=== PATIENT | female | born 1960 | race American Indian/Alaskan Native ===

== ENCOUNTER 2018-12-14 06:42 | Day surgery (SDC) | payer OTHER, SELFPAY ==
--- NOTE | 2018-12-14 | PATH_ITS ---
[facility] Accession Number: [id number] . 01 Material submitted: . colon - POLYP AT 75 CM . 01 Clinical history: . SCREENING COLONOSCOPY . 02 Diagnosis: Colon at 75 cm, Polyp: Tubular adenoma. MRV 12/17/2018 1014 Local . 02 Electronically signed: . Popeye Echols MD, PhD, Pathologist NPI- [id number] . 01 Gross description: . POLYP AT 75 CM: Received in formalin is 1 fragment(s) of neves, soft tissue measuring 0.3 x 0.3 x 0.2 cm which is entirely submitted and submitted entirely in 1 cassette(s) /[facility] [place] 12/14/2018 1912 Local . 02 Pathologist provided ICD-10: D12.6 . 02 CPT . 555508 Performed at: 01 [facility] [address] [id number] MD Richy Renteria MD Phone: [phone] Performed at: 02 [facility] [address] [place], [place] [id number] MD Brittanie Richard MD Phone: [phone]
[2018-12-14 07:11] VITALS: BP 134/78; PULSE 66; RESP 16; TEMP 36.3; O2SAT 99; BMI 30.9
--- NOTE | 2018-12-14 07:18 | PM.HP.1 ---
History of Present Illness History of Present Illness Date Patient Seen: 12/14/18 Time Patient Seen: 07:30 Chief complaint: [id number] SCREENING COLONOSCOPY Narrative: 58 yo woman here for follow-up surveillance colonoscopy. She has a family history of her sister being diagnosed with colon cancer at age 50. The patient had her 1st colonoscopy at age 51, was found to have polyps per the patient. She was told to have a repeat colonoscopy every 5 years. She is here for her 2nd colonoscopy. She denies any melena, hematochezia, unexplained weight loss, constipation, diarrhea, or abdominal pain. ROS: 10 system review with no remarkable findings other than as mentioned in HPI. PE: GENERAL: Well groomed and cooperative. Appears stated age. Answers questions promptly and appropriately. Vital signs noted. HENT: Normocephalic, atraumatic. Hearing intact. Oral mucosa is pink and moist. EYES: Conjunctiva pink, sclera white, no periorbital swelling. CARDIOVASCULAR: Regular rate. No pedal edema. RESPIRATORY: Normal respiratory rate, breathing comfortably on room air. GASTROINTESTINAL: Abdomen soft and non-distended GENITALURINARY: No flank tenderness. MUSCULOSKELETAL: Normal gait and coordination. Equal tone and mass bilaterally. SKIN: Warm, dry, soft, appropriate color for ethnicity. No other lesions, rashes, or wounds. NEURO: Alert and Oriented X 3. Good coordination. No ataxia, or sensory deficits, or cognitive issues. PSYCH: Appropriate affect and mood. Medical history: Mild intermittent asthma, essential hypertension, rheumatic mitral regurgitation Surgical history: Cholecystectomy in 2017, tonsillectomy Medications: Flovent HFA 220 mcg/aCT aerosol 1 puff inhalation twice a day Lisinopril 40 mg tablet 1 tablet orally once per day Hydrochlorothiazide 25 mg tablet 1 tablet in the morning orally once a day Allergies: Bee sting-swelling, Flonase-epistaxis Family history: Sister with colon cancer Patient History Medical History Asthma (Acute) Hypertension (Acute) Rheumatic mitral regurgitation (Acute) Social History household members: none Meds Home Medications and Allergies Allergies Allergy/AdvReac Type Severity Reaction Status Date / Time bee venom protein (honey bee) Allergy Intermediate swelling Verified 12/14/18 07:29 at the site fluticasone [From Flonase] AdvReac Mild bloody nose Verified 12/14/18 07:29 ENVIRONMENTAL ALLERGIES Allergy Unknown Uncoded 06/07/17 11:57 Assessment & Plan Assessment and plan (1) Personal history of colonic polyps: Problem details: Risk and benefit of colonoscopy and possible biopsy and polypectomy were discussed with the patient including risk of bleeding and perforation. The patient desires to proceed with her colonoscopy procedure. Current visit: Yes Status: Acute (2) Family history of malignant neoplasm of colon in first degree relative diagnosed when younger than 60 years of age: Problem details: As above Current visit: Yes Status: Acute Quality VTE Deep Vein Thrombosis/Pulmonary Embolism Present on Admission: No
[2018-12-14] MEDS: SODIUM CHLORIDE 0.9% 1,000 ML 200 ML IV (07:30)
[2018-12-14] MEDS: MIDAZOLAM 5 MG/5 ML VIAL IV (08:19)
[2018-12-14] MEDS: fentaNYL 250 MCG/5 ML INJ IV (08:20)
--- NOTE | 2018-12-14 08:20 | PM.OP.ENDO ---
Operative Date/Time/Diagnoses Date of procedure: 12/14/18 Time of procedure: 08:20 Pre-op diagnosis: Personal history of polyps, family history of colon cancer in the patient's sister Post-op diagnosis: other (Severe diverticulosis throughout the colon, 1 small polyp) Procedure & Clinicians Study performed: Colonoscopy, polypectomy with cold forceps Same procedure as scheduled: Yes Indications: Personal history of polyps, family history of colon cancer Surgeon: Rain Palomino Procedure Notes SCOAP/Timeout: Performed Procedure in detail: The patient was brought to the room and placed in left lateral decubitus position with all bony prominences padded. A time-out was performed and then the patient was given procedural sedation starting with 4 mg of Versed and 100 mg of fentanyl. Vitals were monitored throughout the procedure and remained stable. Once adequately sedated the procedure was begun. A rectal exam was performed revealing no abnormalities. The colonoscope was then introduced to the rectum and advanced to the cecum in the usual fashion. The cecum was identified by the appendiceal orifice, the mucosal try fold, and the ileocecal valve. The scope was then retracted while rotating side to side and examining each mucosal fold. Severe diffuse diverticulosis seen throughout the colon. In the sigmoid colon there were very large diverticula with some false passages. There was a small sessile 3 mm polyp at 75 cm which was removed with cold forceps. At the conclusion of the procedure retroflexion was performed and small grade 1-2 internal hemorrhoids without stigmata of bleeding were seen. The scope was then withdrawn from the rectum the procedure was concluded. The patient tolerated the procedure well was transferred to the PACU in stable condition. Scope withdrawal time: 9 minutes Sedation minutes: 19 Findings: diverticulosis and polyp Specimen(s): other (3 mm polyp from 75 cm from the anal verge) Complications: none Impression: Severe diverticulosis, 1 small polyp which appeared benign Post-procedure Recommendations: Colonscopy in 5 years (Due to family history) Follow up: as needed Disposition: PACU
[2018-12-14 08:21] VITALS: BP 125/71; PULSE 75; RESP 18; TEMP 36.6; O2SAT 98
[2018-12-14 08:26] VITALS: BP 114/76; PULSE 74; RESP 15; O2SAT 98
[2018-12-14 08:31] VITALS: BP 112/76; PULSE 81; RESP 12; TEMP 36.5; O2SAT 98
[2018-12-14 08:38] VITALS: BP 120/71; PULSE 63; RESP 16; TEMP 37.1; O2SAT 97
== END 2018-12-14 08:49 | disposition home or self-care (01) ==
PROVIDERS: PCP Physician Assistant; Visit Provider Surgery
PROC: 0DJD8ZZ Inspection of Lower Intestinal Tract, Via Natural or Artificial Opening Endoscopic (ICD-10-PCS; CPT 45378; principal; 2018-12-14 07:45)
DX: Z86.010 Personal history of colon polyps (principal); Z80.0 Family history of malignant neoplasm of digestive organs; K57.30 Diverticulosis of large intestine without perforation or abscess without bleeding; K64.0 First degree hemorrhoids; D12.6 Benign neoplasm of colon, unspecified
CPT/HCPCS: 45380; 99152; J2250; J3010

== ENCOUNTER → 2018-12-24 14:23 | Outpatient (CLI) | payer OTHER, SELFPAY ==
--- NOTE | 2018-12-24 | DI.RAD.S_ITS ---
PROCEDURE: XR FOOT RT MIN 3V INDICATIONS: Contusion of right great toe without damage to nail, initial TECHNIQUE: 3 views of the foot were acquired. COMPARISON: [facility], , FOOT 3V RIGHT, 07/17/2013, 11:58. FINDINGS: Bones: No fractures or dislocations. No suspicious bony lesions. Plantar and posterior calcaneal spur. Diffuse interphalangeal first MTP joint degeneration. Midfoot spurring. Hallux valgus appearance, however weight bearing views would be more specific. Soft tissues: No tibiotalar joint effusion. Achilles tendon appears normal. IMPRESSION: No fracture. Chronic degenerative changes as above. Plantar and posterior calcaneal spurs. Dictated by: Meng Myles M.D. on 12/24/2018 at 15:31 Approved by: Meng Myles M.D. on 12/24/2018 at 15:34
== END ==
PROVIDERS: PCP Physician Assistant; Visit Provider Family Medicine
DX: S90.111A Contusion of right great toe without damage to nail, initial encounter (principal); M77.31 Calcaneal spur, right foot; M19.071 Primary osteoarthritis, right ankle and foot
CPT/HCPCS: 73630

== ENCOUNTER 2019-10-30 12:44 | Inpatient (IN) | payer OTHER, SELFPAY ==
[2019-10-30] VITALS (13 sets, daily range): BP systolic 101–137; BP diastolic 58–82; PULSE 95–181; RESP 18–25; TEMP 36.3; O2SAT 95–99; BMI 33.5
--- NOTE | 2019-10-30 13:12 | DI.RAD.S_ITS ---
PROCEDURE: XR CHEST 1V INDICATIONS: Chest pain TECHNIQUE: One view of the chest was acquired. COMPARISON: None. FINDINGS: Surgical changes and devices: None. Lungs and pleura: Increased interstitial markings in both lungs. No consolidation or pleural effusion. Mediastinum: Enlarged cardiac silhouette. Bones and chest wall: No suspicious bony lesions. Overlying soft tissues appear unremarkable. IMPRESSION: Cardiomegaly with increased interstitial markings bilaterally. Findings most likely represent heart failure with mild cardiogenic pulmonary edema. Correlate with BNP and echocardiographic findings. Dictated by: Eduin Kerr M.D. on 10/30/2019 at 13:33 Approved by: Eduin Kerr M.D. on 10/30/2019 at 13:34
[2019-10-30] MEDS: dilTIAZem 5 MG/ML SDV 10 MG IV ×2 (13:22→13:37)
[2019-10-30 13:23] LABS: Add Manual Diff / Slide Review NO; Basophils Absolute Auto 100 /uL (0-100); Basophils Percent Auto 1.3 % (0-2); Eosinophils Absolute Auto 100 /uL (0-450); Eosinophils Percent Auto 1.1 % (2-4); Hematocrit 40.3 % (36-46); Hemoglobin 13.7 g/dL (12.0-16.0); Lymphocytes Absolute Auto 1500 /uL (1100-4500); Lymphocytes Percent Auto 16.6 % (25-40); Mean Corpuscular HGB Conc 34.1 % (30-36); Mean Corpuscular Hemoglobin 34.8 PG (26-34); Mean Corpuscular Volume 102.1 fL (80-100); Monocytes Absolute Auto 500 /uL (0-900); Monocytes Percent Auto 5.4 % (3-14); Neutrophils Absolute Auto 6900 /uL (1500-7000); Neutrophils Percent Auto 75.6 % (50-75); Platelet Count 224 X10^3/uL (150-400); Red Blood Cell Count 3.94 X10^6/uL (4.0-5.2); Red Cell Distribution Width 13.7 % (11.6-14.8); White Blood Cell Count 9.1 X10^3/uL (4.5-11.0)
--- NOTE | 2019-10-30 13:24 | ED_ITS ---
HPI - Arrhythmia/Palpitations General Chief Complaint: Arrhythmia/Palpitations Stated Complaint: low b/p/hr high/constipation x2 days Time Seen by Provider: 10/30/19 13:16 Source: patient Mode of arrival: Ambulatory Limitations: no limitations History of Present Illness HPI narrative: Patient is a 59-year-old female who presents with not feeling well. She is found to be in AFib with RVR with a rate in the 180s. She says she has been on amoxicillin for the last 1 week she was at the dentist 2 days ago for procedure. She started feeling shortness of breath fatigue. She says she actually has not had a bowel movement the last 2 days she feels like her abdomen is distended. She is having positive orthopnea but no lower extremity edema. She says she is having difficulty with urination as well and is only p ain small amounts. She denies any nausea or vomiting. She thinks she may had some chest discomfort off and on for the last 1 week she would rub her chest to see if it would go away. MD complaint: rapid heart beat Onset (ago): day(s) Related Data Home Medications Medication Instructions Recorded Confirmed Flovent HFA 1 inh INHALATION PRN PRN 12/14/18 10/30/19 albuterol sulfate [Ventolin HFA] 2 puff INHALATION Q6H PRN 12/14/18 10/30/19 calcium carbonate [Calcium 600] 600 mg PO BID 12/14/18 10/30/19 cholecalciferol (vitamin D3) 1,000 unit PO DAILY 12/14/18 10/30/19 [Vitamin D3] glucosamine-chondroitin [Osteo 1 tab PO DAILY 12/14/18 10/30/19 Bi-Flex] hydrochlorothiazide 25 mg PO DAILY 12/14/18 10/30/19 lisinopril 40 mg PO DAILY 12/14/18 10/30/19 multivitamin 4 tab PO DAILY 12/14/18 10/30/19 inulin [Fiber Gummies] 4 g PO DAILY 10/30/19 10/30/19 Allergies Allergy/AdvReac Type Severity Reaction Status Date / Time bee venom protein (honey bee) Allergy Intermediate swelling Verified 12/14/18 07:29 at the site fluticasone [From Flonase] AdvReac Mild bloody nose Verified 10/18/19 07:29 ENVIRONMENTAL ALLERGIES Allergy Unknown Uncoded 06/07/17 11:57 Review of Systems Review of Systems ROS Unobtainable: All systems reviewed & are unremarkable except as noted in HPI and below Constitutional Constitutional: Denies body ache(s), Reports fatigue, Denies fever(s) and Denies frequent falls Eyes Eyes: Denies change in vision, Denies eye discharge, Denies irritation and Denies loss of vision ENT Ears, Nose, Mouth, and Throat: Denies change in voice, Denies neck pain and Denies sore throat Cardiovascular Cardiovascular: Reports as per HPI, Reports lightheadedness, Reports dyspnea on exertion and Reports orthopnea Respiratory Respiratory: Reports dyspnea on exertion Musculoskeletal Musculoskeletal: Denies back pain and Denies neck pain Integumentary/Breasts Skin/Breast: Denies pruritus, Denies erythema, Denies rash and Denies wounds Neurologic Neurologic: Denies frequent falls and Denies loss of vision Endocrine Endocrine: Reports fatigue Patient History Medical History Asthma (Acute) Hypertension (Acute) Rheumatic mitral regurgitation (Acute) Surgical History History of cholecystectomy (Acute) History of tonsillectomy (Acute) Social History household members: none Smoking Status: Former smoker alcohol intake: current Exam Initial Vital Signs Initial Vital Signs: Vital Signs Pulse Rate 112 H 10/30/19 13:05 Respiratory Rate 24 10/30/19 13:05 Blood Pressure 106/58 L 10/30/19 13:05 Pulse Oximetry 99 10/30/19 13:05 GENERAL: Well-appearing, well-nourished and in no acute distress. HEENT: Head atraumatic,EOMI, pupils reactive, face symmetric, moist mucous membranes CARDIOVASCULAR: tachycardic irregularly irregular no murmur RESPIRATORY: Breath sounds equal bilaterally, no wheezes rales or rhonchi. ABDOMEN: Soft, nontender. Slightly distended. Normoactive bowel sounds all 4 quadrants. No guarding or rebound. EXTREMITIES: Normal range of motion, no clubbing or edema. Neurovascularly intact NEUROLOGICAL: Alert and oriented x4.Normal gait and speech. Cranial nerves II through XII grossly intact. SKIN: Warm, dry, no laceration, no petechiae, no rashes or lesions. Course Orders Ordered: ED Orders 10/30/19 13:12 XR chest 1V Stat EKG-12 Lead Stat 10/30/19 13:15 Complete Blood Count AUTO DIFF Stat Comprehensive Metabolic Panel Stat Lipase Stat NT-proBNP (BNP-Adult 18+) Stat Partial Thromboplastin Time Stat Prothrombin Time INR Stat Troponin & CK Cardiac Panel Stat Acetaminophen (Tylenol) 650 mg PO Q6HR PRN PRN Reason: Fever/Mild Pain (1-3) Apixaban (Eliquis) 5 mg PO BID DAX Carvedilol (Coreg) 3.125 mg PO BID DAX DILTIAZEM (Diltiazem 125 Mg/125 Ml-D5w) 125 mg in 125 mls @ 5 mls/hr IV TITRATE DAX; Protocol Last Titration: 10/30/19 15:12 Dose: 5 mg/hr, 5 mls/hr Documented by: Admin: 10/30/19 14:24 Dose: 5 mg/hr, 5 mls/hr Documented by: ASHOK Lorazepam (Ativan) 0 mg PO CIWAPRN PRN; Protocol PRN Reason: Alcohol Withdrawal Multivitamins (Tab-A-Vanessa) 1 tab PO DAILY [facility] Ondansetron HCl (Zofran) 4 mg IV Q8HR PRN PRN Reason: Nausea And Vomiting Polyethylene Glycol (Miralax) 17 gm PO DAILY [facility] Sennosides (Senna) 17.2 mg PO BEDTIME DAX Discontinued Medications Apixaban (Eliquis) 5 mg PO NOW ONE Stop: 10/30/19 16:03 Diltiazem HCl (Cardizem) 10 mg IV NOW ONE Stop: 10/30/19 13:17 Last Admin: 10/30/19 13:22 Dose: 10 mg Documented by: KYLE Diltiazem HCl (Cardizem) 10 mg IV NOW ONE Stop: 10/30/19 13:34 Last Admin: 10/30/19 13:37 Dose: 10 mg Documented by: KYLE Furosemide (Lasix) 20 mg IV NOW ONE Stop: 10/30/19 13:47 Last Admin: 10/30/19 14:31 Dose: 20 mg Documented by: ASHOK Metoprolol Succinate (Toprol Xl) 25 mg PO NOW ONE Stop: 10/30/19 13:59 Last Admin: 10/30/19 14:23 Dose: Not Given Documented by: ASHOK Polyethylene Glycol (Miralax) 17 gm PO NOW ONE Stop: 10/30/19 15:52 Vital Signs Vital signs: Vital Signs - 8 hr 10/30/19 13:05 10/30/19 13:10 10/30/19 13:22 Pulse Rate 112 H 167 H 172 H Respiratory Rate 24 25 H Blood Pressure 106/58 L 110/82 Pulse Oximetry 99 98 10/30/19 13:23 10/30/19 13:29 10/30/19 13:30 Pulse Rate 181 H 139 H 151 H Respiratory Rate 23 24 24 Blood Pressure 110/82 111/72 Pulse Oximetry 96 95 96 10/30/19 13:31 10/30/19 13:37 Pulse Rate 146 H 153 H Respiratory Rate 25 H Blood Pressure 114/71 114/71 Pulse Oximetry 95 MDM - Arrhythmia/Palpitations Lab Data Attestation: I reviewed the patient's lab results. Result diagrams: 10/30/19 13:15 10/30/19 13:15 Labs: Lab Results 10/30/19 10/30/19 10/30/19 Range/Units 13:15 13:15 13:15 WBC 9.1 (4.5-11.0) X10^3/uL RBC 3.94 L (4.0-5.2) X10^6/uL Hgb 13.7 (12.0-16.0) g/dL Hct 40.3 (36-46) % MCV 102.1 H (80-100) fL MCH 34.8 H (26-34) PG MCHC 34.1 (30-36) % RDW 13.7 (11.6-14.8) % Plt Count 224 (150-400) X10^3/uL Neut % (Auto) 75.6 H (50-75) % Lymph % (Auto) 16.6 L (25-40) % [place] % (Auto) 5.4 (3-14) % Eos % (Auto) 1.1 L (2-4) % Baso % (Auto) 1.3 (0-2) % Neut # (Auto) 6900 (2254-9385) /uL Lymph # (Auto) 1500 (2193-3426) /uL [place] # (Auto) 500 (0-900) /uL Eos # (Auto) 100 (0-450) /uL Baso # (Auto) 100 (0-100) /uL PT 16.0 H (10.1-12.7) SECONDS INR 1.4 H (0.9-1.3) APTT 27 (26.4-36.2) SECONDS Sodium 129 L (137-145) mmol/L Potassium 3.9 (3.4-5.1) mmol/L Chloride 94 L (98-107) mmol/L Carbon Dioxide 24 (22-32) mmol/L BUN 32 H (7-17) mg/dL Creatinine 1.10 H (0.52-1.04) mg/dL Estimated GFR 50.8 L (>60) mL/min BUN/Creatinine Ratio 29.1 H (6-22) Glucose 99 (70-100) mg/dL Calcium 9.7 (8.4-10.2) mg/dL Total Bilirubin 1.0 (0.2-1.3) mg/dL AST 146 H (14-36) IU/L ALT 107 H (<35) IU/L Alkaline Phosphatase 70 (38-126) U/L Total Creatine Kinase 91 (30-135) U/L CK-MB (CK-2) TNP CK-MB (CK-2) Rel Index TNP Troponin I 0.031 (0.01-0.034) ng/mL NT-Pro-B Natriuret Pep (<125) pg/mL Total Protein 7.1 (6.3-8.2) g/dL Albumin 4.2 (3.5-5.0) g/dL Globulin 2.9 (1.7-4.1) g/dL Albumin/Globulin Ratio 1.4 (1.0-2.8) Lipase 276 (23-300) U/L 10/30/19 Range/Units 13:15 WBC (4.5-11.0) X10^3/uL RBC (4.0-5.2) X10^6/uL Hgb (12.0-16.0) g/dL Hct (36-46) % MCV (80-100) fL MCH (26-34) PG MCHC (30-36) % RDW (11.6-14.8) % Plt Count (150-400) X10^3/uL Neut % (Auto) (50-75) % Lymph % (Auto) (25-40) % [place] % (Auto) (3-14) % Eos % (Auto) (2-4) % Baso % (Auto) (0-2) % Neut # (Auto) (9140-9031) /uL Lymph # (Auto) (6969-8448) /uL [place] # (Auto) (0-900) /uL Eos # (Auto) (0-450) /uL Baso # (Auto) (0-100) /uL PT (10.1-12.7) SECONDS INR (0.9-1.3) APTT (26.4-36.2) SECONDS Sodium (137-145) mmol/L Potassium (3.4-5.1) mmol/L Chloride (98-107) mmol/L Carbon Dioxide (22-32) mmol/L BUN (7-17) mg/dL Creatinine (0.52-1.04) mg/dL Estimated GFR (>60) mL/min BUN/Creatinine Ratio (6-22) Glucose (70-100) mg/dL Calcium (8.4-10.2) mg/dL Total Bilirubin (0.2-1.3) mg/dL AST (14-36) IU/L ALT (<35) IU/L Alkaline Phosphatase (38-126) U/L Total Creatine Kinase (30-135) U/L CK-MB (CK-2) CK-MB (CK-2) Rel Index Troponin I (0.01-0.034) ng/mL NT-Pro-B Natriuret Pep 63006 H (<125) pg/mL Total Protein (6.3-8.2) g/dL Albumin (3.5-5.0) g/dL Globulin (1.7-4.1) g/dL Albumin/Globulin Ratio (1.0-2.8) Lipase (23-300) U/L Imaging Data Chest x-ray: Radiologist's Impresson: PROCEDURE: XR CHEST 1V INDICATIONS: Chest pain TECHNIQUE: One view of the chest was acquired. COMPARISON: None. FINDINGS: Surgical changes and devices: None. Lungs and pleura: Increased interstitial markings in both lungs. No consolidation or pleural effusion. Mediastinum: Enlarged cardiac silhouette. Bones and chest wall: No suspicious bony lesions. Overlying soft tissues appear unremarkable. IMPRESSION: Cardiomegaly with increased interstitial markings bilaterally. Findings most likely represent heart failure with mild cardiogenic pulmonary edema. Correlate with BNP and echocardiographic findings. Dictated by: Eduin Kerr M.D. on 10/30/2019 at 13:33 ECG Data Attestation: I personally reviewed and interpreted this ECG as follows: Prior ECG tracings: available for review Interpretation: Atrial fibrillation rate [address] changes previous EKG does show normal sinus rhythm in 2009 MDM Narrative Medical decision making narrative: The patient has had symptoms ongoing for at least 2 days possibly a week even she is not a candidate for cardioversion. She is having abdominal distension and orthopnea with an elevated BNP along with cardiomegaly and interstitial markings on x-ray consistent with CHF. She is given a dose of Lasix. Her heart rate responded well to Cardizem is placed on a Cardizem drip. home and agrees with admission and requested metoprolol succinate. Unfortunately patient says she was previously on metoprolol for palpitations in the past and did not tolerated Discharge Plan Departure Patient Disposition: Admitted as Observation Clinical Impression: Atrial fibrillation with rapid ventricular response, Family history of ma lignant neoplasm of colon in first degree relative diagnosed when younger than 60 years of age Discharge Date/Time: 10/30/19 15:12 Referrals: Dahlia Diana PA-C [Primary Care Provider] - Admit Date/Time: 10/30/19 14:06 Admit Provider: Hermelindo Godinez
[2019-10-30 13:30] LABS: INR 1.4 (0.9-1.3)
[2019-10-30 13:33] LABS: PTT Partial Thromboplastin Tim 27 SECONDS (26.4-36.2)
[2019-10-30 13:36] LABS: Alanine Aminotransferase 107 IU/L (<35); Albumin 4.2 g/dL (3.5-5.0); Albumin Globulin Ratio 1.4 (1.0-2.8); Alkaline Phosphatase 70 U/L (38-126); Aspartate Aminotransferase 146 IU/L (14-36); BUN Creatinine Ratio 29.1 (6-22); Blood Urea Nitrogen 32 mg/dL (7-17); Calcium 9.7 mg/dL (8.4-10.2); Carbon Dioxide 24 mmol/L (22-32); Chloride 94 mmol/L (98-107); Creatine Kinase 91 U/L (30-135); Estimated Glomerular Filt Rate 50.8 mL/min (>60); Globulin 2.9 g/dL (1.7-4.1); Glucose 99 mg/dL (70-100); HEMOLYSIS 15 (0-50); Lipase 276 U/L (23-300); Potassium 3.9 mmol/L (3.4-5.1); Sodium 129 mmol/L (137-145); Total Protein 7.1 g/dL (6.3-8.2)
[2019-10-30 13:45] LABS: NT-proBNP (BNP-Adult 18+) 13500 pg/mL (<125)
[2019-10-30 13:48] LABS: Troponin I 0.031 ng/mL (0.01-0.034)
[2019-10-30] MEDS: DILTIAZEM 125 MG/125 ML PIGGYBACK IV (14:24)
[2019-10-30] MEDS: FUROSEMIDE 20 MG/2 ML VIAL IV (14:31)
--- NOTE | 2019-10-30 15:23 | PC.NURSE ---
Admit Note Pt arrived to room 229 at 1500 from ER via stretcher. Walked self SBA to bathroom to void without issue, denied dizziness. HR in the 150s afib on monitor with occ. PVCs. Diltiazem gtt increased to 10 mg/hr. Denies chest pain, denies shortness of breath. Declined to lock up any valuables in safe. Cell phone and sample stitcher at bedside. Clothing in room closet. Oriented to room and to bed/tv/call light controls. Instructed to call for assistance before getting OOB and she acknowledged understanding. Report given to Gregoria FU.
--- NOTE | 2019-10-30 15:43 | P.HP_ITS ---
History of Present Illness History of Present Illness Date Patient Seen: 10/30/19 Time Patient Seen: 15:43 Chief complaint: low b/p/hr high/constipation x2 days Narrative: Brittni Major is a 59 year old adopted female with a past medical history of hypertension, rheumatic fever, and previous diagnosis of paroxysmal atrial fibrillation who presented with 2 days of worsening shortness of breath on exertion. Patient states for the past few months she has had a chronic cough and worsening shortness of breath on exertion. So much so that she had to stop her job. She states approximately 2 years ago she was diagnosed with an irregular heart rhythm and was given metoprolol but she could not tolerate it due to fatigue and headaches. She had been really asymptomatic until a few months ago when she started noticing that she was more short of breath and had a cough. She saw her primary care provider who gave her steroids for presumed asthma, which did help but when she stopped her steroids her cough returned. She was going to try and stop lisinopril. She then developed some issues with her teeth which required removal. She was given antibiotics prior to the procedure, amoxicillin, which she thinks made her legs swell, but after her procedure she noticed that she could not walk more than a few feet without getting short of breath, her cough worsened, and her heart rate was really fast. While at the dentist, she states the dentist did notice that she had a hard heart rate but this was prior to injecting her with local anesthetic. She went to the [facility] yesterday who did an EKG and was going to call a laundry presser and get an echocardiogram next Monday, but the patient had still continued symptoms and decided to come to the emergency room today. Patient states that she drinks approximately 5-6 alcoholic beverages a night, with the last drink being Monday prior to her dental procedure. She has been unable to sleep over the past few nights due to her present symptoms.. In the emergency room her initial heart rate was in the 160s, with a mildly elevated blood pressure, but otherwise unremarkable vital signs. She appeared short of breath at rest per the emergency room provider. EKG showed atrial fibrillation with a rate of 163 and nonspecific T-wave abnormalities but no significant ST depressions or elevations. Initial laboratory evaluation showed an unremarkable CBC, mildly elevated INR at 1.4, a sodium of 129, creatinine of 1.1 with an EGFR of 50.8. AST was mildly elevated 146 will ALT was 107. Initial troponin was 0.031. Patient was not complaining of chest pain[place] [address]. COVID-19 PCR is pending. Patient was admitted under observation status to the ICU on a diltiazem infusion for atrial fibrillation with rapid ventricular response. Patient History Medical History Asthma (Acute) Hypertension (Acute) Rheumatic mitral regurgitation (Acute) Surgical History History of cholecystectomy (Acute) History of tonsillectomy (Acute) Family & Social History Social History: household members none Meds Home Medications and Allergies Home Medications Medication Instructions Recorded Confirmed Type Flovent HFA 1 inh INHALATION PRN PRN 12/14/18 10/30/19 History albuterol sulfate [Ventolin HFA] 2 puff INHALATION Q6H PRN 12/14/18 10/30/19 History calcium carbonate [Calcium 600] 600 mg PO BID 12/14/18 10/30/19 History cholecalciferol (vitamin D3) 1,000 unit PO DAILY 12/14/18 10/30/19 History [Vitamin D3] glucosamine-chondroitin [Osteo 1 tab PO DAILY 12/14/18 10/30/19 History Bi-Flex] hydrochlorothiazide 25 mg PO DAILY 12/14/18 10/30/19 History lisinopril 40 mg PO DAILY 12/14/18 10/30/19 History multivitamin 4 tab PO DAILY 12/14/18 10/30/19 History inulin [Fiber Gummies] 4 g PO DAILY 10/30/19 10/30/19 History Allergies Allergy/AdvReac Type Severity Reaction Status Date / Time bee venom protein (honey bee) Allergy Intermediate swelling Verified 12/14/18 07:29 at the site fluticasone [From Flonase] AdvReac Mild bloody nose Verified 12/14/18 07:29 ENVIRONMENTAL ALLERGIES Allergy Unknown Uncoded 06/07/17 11:57 Review of Systems Review of Systems Narrative: All other systems reviewed with the patient and are negative unless otherwise stated. Exam Vital Signs (past 8 hours): - 10/30/19 13:05 10/30/19 13:10 10/30/19 13:22 Pulse Rate 112 H 167 H 172 H Respiratory Rate 24 25 H Blood Pressure 106/58 L 110/82 Pulse Oximetry 99 98 10/30/19 13:23 10/30/19 13:29 10/30/19 13:30 Pulse Rate 181 H 139 H 151 H Respiratory Rate 23 24 24 Blood Pressure 110/82 111/72 Pulse Oximetry 96 95 96 10/30/19 13:31 10/30/19 13:37 Pulse Rate 146 H 153 H Respiratory Rate 25 H Blood Pressure 114/71 114/71 Pulse Oximetry 95 Oxygen Delivery Method Room Air Narrative Exam Narrative: GENERAL APPEARANCE: Well developed, well nourished, in no acute distress. Obese. SKIN: Inspection of the skin reveals no rashes, ulcerations or petechiae. HEENT: Normocephalic atraumatic, extraocular muscles are intact, oropharynx is clear and mucous membranes are moist, neck is supple without adenopathy NECK: Supple and symmetric. There was no thyroid enlargement, and no tenderness, or masses were felt. CHEST: Normal AP diameter and normal contour without any kyphoscoliosis. LUNGS: Auscultation of the lungs revealed no wheezes, rhonchi, or rales. CARDIOVASCULAR: Tachycardic and irregularly irregular rhythm without any murmurs, gallops, rubs. Peripheral pulses were 2+ and symmetric. ABDOMEN: Soft and nontender with normal bowel sounds. No ascites was noted. MUSCULOSKELETAL: There was no tenderness or effusions noted. Muscle strength and tone were normal. EXTREMITIES: No cyanosis, clubbing or edema. NEUROLOGIC: Alert and oriented x 3. Normal affect. Strength is +5/5 in the Upper Extremities and Lower Extremities Bilaterally. Sensation to touch was normal. Objective Labs Result Diagrams: 10/30/19 13:15 10/30/19 13:15 Labs: Laboratory Results - last 24 hr 10/30/19 10/30/19 10/30/19 13:15 13:15 13:15 WBC 9.1 RBC 3.94 L Hgb 13.7 Hct 40.3 MCV 102.1 H MCH 34.8 H MCHC 34.1 RDW 13.7 Plt Count 224 Neut % (Auto) 75.6 H Lymph % (Auto) 16.6 L [place] % (Auto) 5.4 Eos % (Auto) 1.1 L Baso % (Auto) 1.3 Neut # (Auto) 6900 Lymph # (Auto) 1500 [place] # (Auto) 500 Eos # (Auto) 100 Baso # (Auto) 100 PT 16.0 H INR 1.4 H APTT 27 Sodium 129 L Potassium 3.9 Chloride 94 L Carbon Dioxide 24 BUN 32 H Creatinine 1.10 H Estimated GFR 50.8 L BUN/Creatinine Ratio 29.1 H Glucose 99 Calcium 9.7 Total Bilirubin 1.0 AST 146 H ALT 107 H Alkaline Phosphatase 70 Total Creatine Kinase 91 CK-MB (CK-2) TNP CK-MB (CK-2) Rel Index TNP Troponin I 0.031 NT-Pro-B Natriuret Pep Total Protein 7.1 Albumin 4.2 Globulin 2.9 Albumin/Globulin Ratio 1.4 Lipase 276 10/30/19 13:15 WBC RBC Hgb Hct MCV MCH MCHC RDW Plt Count Neut % (Auto) Lymph % (Auto) [place] % (Auto) Eos % (Auto) Baso % (Auto) Neut # (Auto) Lymph # (Auto) [place] # (Auto) Eos # (Auto) Baso # (Auto) PT INR APTT Sodium Potassium Chloride Carbon Dioxide BUN Creatinine Estimated GFR BUN/Creatinine Ratio Glucose Calcium Total Bilirubin AST ALT Alkaline Phosphatase Total Creatine Kinase CK-MB (CK-2) CK-MB (CK-2) Rel Index Troponin I NT-Pro-B Natriuret Pep 45066 H Total Protein Albumin Globulin Albumin/Globulin Ratio Lipase Assessment & Plan Assessment & Plan narrative: Brittni Major is a 59 year old adopted female with a past medical history of hypertension, rheumatic fever, and previous diagnosis of paroxysmal atrial fibrillation who presented with 2 days of worsening shortness of breath on exertion. She is admitted under observation status to the ICU with atrial fibrillation with rapid ventricular response. 1. Atrial fibrillation with rapid ventricular response, present on admission, likely acute -continue to titrate diltiazem infusion for rate control -further risk stratify with TSH, A1c, and lipid panel -current chads Vasc score is 2, will start anticoagulation with apixaban -patient states she was diagnosed with AFib a few years ago and was trialed on metoprolol but was unable to tolerate this. Will start Coreg 3.125 mg b.i.d.. -will obtain a echocardiogram. -differential includes PAT given obesity, alcoholic induced atrial fibrillation, amongst other etiologies. -troponin within normal limits at 0.031 and no complaints of current chest pain. Will repeat a 2nd lab value in the morning. 2. Hypertension, chronic -will hold home lisinopril and HCTZ in favor of rate control agents at this time. Patient is currently with low normal blood pressures on diltiazem infusion. 3. Possible acute heart failure / dyspnea on exertion -follow-up echocardiogram as noted above -proBNP elevated to 13,500 on admission -patient has symptoms of dyspnea on exertion and cough. She did recently have a dental surgery, however I do not believe this to be contributing. Dyspnea on exertion may be due to uncontrolled afib, history of asthma, or acute heart failure. -she further possibly has obstructive sleep apnea, she does drink quite a bit of alcohol which could lead to a dilated cardiomyopathy, or she could have a tachyarrhythmia induced cardiomyopathy as well. -patient was given 20 mg of IV Lasix in the emergency room. She has minimal bibasilar crackles on exam and does not appear overtly overloaded at this time. Will hold on further diuresis given low normal blood pressures in favor of additional rate control agents, but she may need additional diuresis. 4. Hyponatremia, unknown chronicity, present on admission -sodium of 129 on admission, it is unclear what her usual baseline is. Will continue to monitor. This may be in the setting of chronic alcoholism. She does appear euvolemic at this time. If her sodium continues to worsen will obtain urine studies but will repeat her labs in the morning. 5. Possible CKD 3 verses elevated creatinine -patient with a creatinine of 1.1 on admission with an EGFR 50.8. Unclear if this is acute or chronic and unknown what her baseline is. 6. Alcoholic hepatitis, present on admission -mild with AST elevation to 146, and ALT elevation to 107. These may be possibly elevated in the setting of congestion but more likely this is due to alcoholic disease. Will continue to trend and will consider abdominal ultrasound. Code: Full as discussed with the patient DVT: Will start apixaban as noted above Dispo: Admitted under observation status to the ICU for AFib with RVR and diltiazem infusion. Scores CHADS-VASc Congestive heart failure: no Hypertension: yes Age 75 years or older: no Diabetes mellitus: no Stroke, TIA, or TE: no Vascular disease: no Age 65 to 74 years: no Sex category (female): Female CHADS-VASc Score: 2
[2019-10-30 16:01] LABS: COVID19 -Nasal RAPID Negative (Negative)
[2019-10-30] MEDS: polyethylene glycoL 3350 17 GM POWD.PACK PO (17:30)
[2019-10-30] MEDS: APIXABAN 5 MG TABLET PO ×2 (17:30→21:02)
[2019-10-30] MEDS: carvediloL 3.125 MG TABLET PO (21:02)
[2019-10-30] MEDS: SENNOSIDES 8.6 MG TABLET 17.2 MG PO (21:02)
[2019-10-30] MEDS: DILTIAZEM 125 MG/125 ML PIGGYBACK 15 MG IV (23:48)
[2019-10-31] VITALS (68 sets, daily range): BP systolic 83–146; BP diastolic 60–87; PULSE 71–120; RESP 16–44; TEMP 36.2–36.6; O2SAT 89–99
[2019-10-31 04:48] LABS: Add Manual Diff / Slide Review NO; Basophils Absolute Auto 100 /uL (0-100); Basophils Percent Auto 1.6 % (0-2); Eosinophils Absolute Auto 200 /uL (0-450); Eosinophils Percent Auto 2.6 % (2-4); Hematocrit 39.2 % (36-46); Hemoglobin 13.1 g/dL (12.0-16.0); Lymphocytes Absolute Auto 1400 /uL (1100-4500); Lymphocytes Percent Auto 18.2 % (25-40); Mean Corpuscular HGB Conc 33.5 % (30-36); Mean Corpuscular Hemoglobin 34.6 PG (26-34); Mean Corpuscular Volume 103.4 fL (80-100); Monocytes Absolute Auto 500 /uL (0-900); Monocytes Percent Auto 6.5 % (3-14); Neutrophils Absolute Auto 5300 /uL (1500-7000); Neutrophils Percent Auto 71.1 % (50-75); Platelet Count 208 X10^3/uL (150-400); Red Blood Cell Count 3.79 X10^6/uL (4.0-5.2); Red Cell Distribution Width 13.9 % (11.6-14.8); White Blood Cell Count 7.4 X10^3/uL (4.5-11.0)
[2019-10-31 04:55] LABS: Hemoglobin A1C% w Est Avg Glu 5.2 % (4.0-6.0)
[2019-10-31 05:02] LABS: Alanine Aminotransferase 107 IU/L (<35); Albumin 3.8 g/dL (3.5-5.0); Albumin Globulin Ratio 1.3 (1.0-2.8); Alkaline Phosphatase 68 U/L (38-126); Aspartate Aminotransferase 128 IU/L (14-36); BUN Creatinine Ratio 26.6 (6-22); Bilirubin Total 0.8 mg/dL (0.2-1.3); Bilirubin Unconjugated 0.6 mg/dL (0.0-1.1); Blood Urea Nitrogen 29 mg/dL (7-17); Calcium 9.4 mg/dL (8.4-10.2); Carbon Dioxide 30 mmol/L (22-32); Chloride 92 mmol/L (98-107); Cholesterol 99 mg/dL (140-199); Estimated Glomerular Filt Rate 51.4 mL/min (>60); Globulin 2.9 g/dL (1.7-4.1); Glucose 95 mg/dL (70-100); HDL Cholesterol 34 mg/dL (40-60); HEMOLYSIS < 15 (0-50); LDL Cholesterol Calculated 44 mg/dL (<100); Magnesium 1.8 mg/dL (1.6-2.3); Potassium 3.7 mmol/L (3.4-5.1); Sodium 131 mmol/L (137-145); Total Protein 6.7 g/dL (6.3-8.2); Triglycerides 107 mg/dL (35-150)
--- NOTE | 2019-10-31 05:16 | PC.NURSE ---
Addendum entered by Carina Enamorado R.N. 10/31/19 05:57: at 0600 HR averaging 110, going into 120s, last BP check was 105/79, Dilt gtt back on at 5ml/hr Original Note: HR was averaging in 80s, Turned dilt ggt down from 15 to 10 at 0100, BP went to 9/63, gtt turned down to 5 at 0215 and at 0340 BP was down to 80/68 dilt was stopped, BP came up to 113/72 and average HR remains in the 80s. Pt denies pain but continues to be SOB with exertion.
[2019-10-31 06:24] LABS: TSH w/ Reflex to FT4 0.86 uIU/mL (0.47-4.68)
[2019-10-31] MEDS: APIXABAN 5 MG TABLET PO ×2 (09:27→21:07)
[2019-10-31] MEDS: carvediloL 3.125 MG TABLET PO ×2 (09:27→21:07)
[2019-10-31] MEDS: MULTIVITAMIN 1 TABLET 1 TAB PO (09:27)
[2019-10-31] MEDS: ACETAMINOPHEN 325 MG TABLET 650 MG PO ×2 (09:30→16:10)
[2019-10-31] MEDS: polyethylene glycoL 3350 17 GM POWD.PACK PO (09:32)
--- NOTE | 2019-10-31 11:14 | DI.ECHO.S_ITS ---
Echocardiogram Report + + :Name: CLAIRE TAY Study Date: 10/31/2019 Height: 66 in : :[facility] Weight: 175 lb : : Gender: Female BSA: 1.9 m2 : :: 1960 Age: 59 yrs BP: 115/87 mmHg: :Reason For Study: AFIB : :Ordering Physician: HOSPITALIST, : :LOUISA Performed By: Lady Villanueva : :Referring: KASSIE SPICER : + + Interpretation Summary Left ventricular systolic function is severely reduced. The ejection fraction is estimated to be 10-15%. There is severe global hypokinesis of the left ventricle. Suspect increased left atrial pressure given elevated E/e'. The right ventricle is mildly dilated. Right ventricular systolic function is at the lower limits of normal. The left atrium is severely dilated. There is moderate tricuspid regurgitation. PA pressure is likely underestimated given there are multiple TR jets. CVP is elevated, estimated to be 15 mmHg. Stroke volume is reduced. No prior echo for comparison. Procedure: A two-dimensional transthoracic echocardiogram with color flow and Doppler was performed. The study quality was technically adequate. Comparison is made with the echocardiogram of 04/02/2004. The patient was in atrial fibrillation with heart rates between 71-105 bpm during the exam. Left Ventricle: The estimated left ventricular end diastolic volume is 185 ml. The left ventricle is moderately dilated. There is normal left ventricular wall thickness. The ejection fraction is estimated to be 10-15%. Left ventricular systolic function is severely reduced. There is severe global hypokinesis of the left ventricle. Diastolic function could not be accurately assessed due to atrial fibrillation. Suspect increased left atrial pressure given elevated E/e'. Right Ventricle: The right ventricle is mildly dilated. Right ventricular systolic function is at the lower limits of normal. Atria: The left atrium is severely dilated. The right atrium is moderate to severely dilated. There is no Doppler evidence for an interatrial shunt. Mitral Valve: The mitral valve leaflets appear mildly thickened, but open well. There is mild mitral annular calcification. There is moderate to severe mitral regurgitation. Aortic Valve: The aortic valve is trileaflet. The aortic valve opens well. There is no aortic valve stenosis. No aortic regurgitation is present. Tricuspid Valve: The tricuspid valve is normal in structure and function. The right ventricular systolic pressure is estimated to be at least 33 mmHg based on an estimated right atrial pressure of 15 mm Hg. There is moderate tricuspid regurgitation. Pulmonic Valve: The pulmonic valve leaflets are thin and pliable; valve motion is normal. There is a trace or physiologic amount of pulmonic regurgitation. Great Vessels: The aortic root is normal size. The ascending aorta is normal in size. The IVC is dilated (diameter is greater than 2.1 cm) and it collapses less than 50% with a sniff. This suggests a high right atrial pressure of 15 mm Hg. Pericardium/ Pleura There is a trivial to small pericardial effusion noted. There is no pleural effusion. MMode/2D Measurements & Calculations LVIDd: 5.8 cm LVOT diam: 2.2 cm LVIDs: 5.6 cm Ao root diam: 3.4 cm FS: 2.4 % asc Aorta Diam: 3.2 cm EPSS: 2.5 cm Ao Arch Diam (Prox Trans): 2.9 cm IVSd: 0.75 cm LVPWd: 0.80 cm LV velez. diameter/BSA (cm/m^2): 3.0 LV sys. diameter/BSA (cm/m^2): 3.0 LA A2 area: 37.7 cm2 RA long axis: 6.4 cm LA A4 area: 42.5 cm2 RA area: 25.7 cm2 LA length (vol): 8.1 cm RA vol: 87.2 ml LA vol: 168.5 ml RA : 46.2 ml/m2 LA vol index: 89.2 ml/m2 IVC diam: 2.5 cm RVD1 (basal): 4.3 cm TAPSE: 1.8 cm Doppler Measurements & Calculations Ao V2 max: 111.1 cm/sec LVOT Max Oren: 42.6 cm/sec Ao V2 mean: 76.2 cm/sec LV V1 max P.73 mmHg Ao max P.0 mmHg LV V1 VTI: 6.0 cm Ao mean P.7 mmHg KRIS(I,D): 1.2 cm2 Ao V2 VTI: 19.9 cm KRIS(V,D): 1.5 cm2 sev ratio: 0.30 KRIS indexed to BSA (cm^2/m^2): 0.62 MV E max oren: 129.7 cm/sec TR max oren: 205.0 cm/sec MV A max oren: 2.9 cm/sec TR max P.8 mmHg MV E/A: 45.2 PA V2 max: 40.7 cm/sec Med Peak E' Oren: 3.2 cm/sec PA V2 mean: 24.2 cm/sec E/E' med: 40.1 PA mean P.29 mmHg Lat Peak E' Oren: 6.2 cm/sec PA pr(Accel): 57.2 mmHg E/E' lat: 20.9 E/e' average: 30.5 MV dec time: 0.17 sec MR ERO: 0.48 cm2 MR PISA: 4.0 cm2 SV(LVOT): 23.1 ml MR flow rate: 166.5 cm3/sec MR PISA radius: 0.79 cm Electronically signed by: Srinath Zuñiga M.D. on Reading Physician:10/31/2019 12:26 PM
--- NOTE | 2019-10-31 14:00 | CM.IDA ---
Initial DCP Assessment Note patient is a 59 yo female, resident of [place]. Patient presents w/afib w/RVR, possible acute heart failure, ETOH PCP: Dahlia Diana Payer: Healthcare Management/[facility] Reviewed chart. RN Magalys explains patient has supportive family at bedside. Echo today; patient will likely return home w/no barriers once medically cleared. Likely close outpt f/u will be recommended. According to Dr Godinez, patient admits to drinking 5-6 beers nightly, on CIWA precautions, CIWA at 0800 was 1. Has not had a drink since Monday in preparation for a dental procedure. 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
[2019-10-31] MEDS: DILTIAZEM 125 MG/125 ML PIGGYBACK 10 MG IV (16:10)
--- NOTE | 2019-10-31 16:18 | PM.PN.1 ---
Subjective Subjective Date Patient Seen: 10/31/19 Time Patient Seen: 16:19 Interval history: Brittni Major is a 59 year old adopted female with a past medical history of hypertension, rheumatic fever, and previous diagnosis of paroxysmal atrial fibrillation who presented with 2 days of worsening shortness of breath on exertion. She was admitted for AFib with RVR. She has not had adequate control with diltiazem. I have started the patient on carvedilol given prior reported intolerance and unwillingness to take metoprolol. She is fairly well controlled with diltiazem infusion, but cannot be weaned off of this. Echocardiogram came back today with an EF of 10-15% with global hypokinesis of the left ventricle. There is also dilation of her right ventricle with borderline low right ventricular systolic function. Discussed the case with cardiology who recommended digoxin loading over the course of 24 hours with transition to oral afterwards, anticoagulation, and potential ischemic evaluation depending on how long the patient is admitted. Exam Vital Signs (past 8 hours): - 10/31/19 08:30 10/31/19 09:00 10/31/19 09:27 Temperature Pulse Rate 115 H 114 H 88 Respiratory Rate 32 H 16 Blood Pressure Pulse Oximetry 10/31/19 09:30 10/31/19 09:56 10/31/19 10:00 Temperature 97.4 F L Pulse Rate 99 H 94 H 94 H Respiratory Rate 24 26 H 23 Blood Pressure 111/77 115/87 Pulse Oximetry 98 99 10/31/19 10:30 10/31/19 11:00 10/31/19 11:30 Temperature Pulse Rate 91 H 85 85 Respiratory Rate 32 H 28 H 25 H Blood Pressure Pulse Oximetry 96 95 89 L 10/31/19 12:00 10/31/19 12:02 10/31/19 12:30 Temperature Pulse Rate 92 H 99 H 93 H Respiratory Rate 28 H 36 H 29 H Blood Pressure 101/76 101/76 Pulse Oximetry 95 10/31/19 13:00 10/31/19 13:30 10/31/19 14:00 Temperature Pulse Rate 87 88 87 Respiratory Rate 30 H 28 H 33 H Blood Pressure Pulse Oximetry 96 10/31/19 14:30 10/31/19 14:58 10/31/19 15:00 Temperature Pulse Rate 81 90 100 H Respiratory Rate 35 H 28 H 24 Blood Pressure 99/74 99/74 Pulse Oximetry 10/31/19 15:30 Temperature Pulse Rate 80 Respiratory Rate 21 Blood Pressure Pulse Oximetry Oxygen Delivery Method Room Air Oxygen Flow Rate 0 Narrative Exam Narrative: GENERAL APPEARANCE: Well developed, well nourished, in no acute distress. Obese. SKIN: Inspection of the skin reveals no rashes, ulcerations or petechiae. HEENT: Normocephalic atraumatic, extraocular muscles are intact, oropharynx is clear and mucous membranes are moist, neck is supple without adenopathy NECK: Supple and symmetric. There was no thyroid enlargement, and no tenderness, or masses were felt. CHEST: Normal AP diameter and normal contour without any kyphoscoliosis. LUNGS: Auscultation of the lungs revealed no wheezes, rhonchi, or rales. CARDIOVASCULAR: Tachycardic and irregularly irregular rhythm without any murmurs, gallops, rubs. Peripheral pulses were 2+ and symmetric. ABDOMEN: Soft and nontender with normal bowel sounds. No ascites was noted. MUSCULOSKELETAL: There was no tenderness or effusions noted. Muscle strength and tone were normal. EXTREMITIES: No cyanosis, clubbing or edema. NEUROLOGIC: Alert and oriented x 3. Normal affect. Strength is +5/5 in the Upper Extremities and Lower Extremities Bilaterally. Sensation to touch was normal. Objective Labs Result Diagrams: 10/31/19 04:30 10/31/19 04:30 Labs: Laboratory Results - last 24 hr 10/30/19 10/31/19 10/31/19 15:05 04:30 04:30 WBC 7.4 RBC 3.79 L Hgb 13.1 Hct 39.2 MCV 103.4 H MCH 34.6 H MCHC 33.5 RDW 13.9 Plt Count 208 Neut % (Auto) 71.1 Lymph % (Auto) 18.2 L [place] % (Auto) 6.5 Eos % (Auto) 2.6 Baso % (Auto) 1.6 Neut # (Auto) 5300 Lymph # (Auto) 1400 [place] # (Auto) 500 Eos # (Auto) 200 Baso # (Auto) 100 Sodium 131 L Potassium 3.7 Chloride 92 L Carbon Dioxide 30 BUN 29 H Creatinine 1.09 H Estimated GFR 51.4 L BUN/Creatinine Ratio 26.6 H Glucose 95 Hemoglobin A1c Calcium 9.4 Magnesium 1.8 Total Bilirubin 0.8 Conjugated Bilirubin 0.0 Unconjugated Bilirubin 0.6 AST 128 H ALT 107 H Alkaline Phosphatase 68 Total Protein 6.7 Albumin 3.8 Globulin 2.9 Albumin/Globulin Ratio 1.3 Triglycerides 107 Cholesterol 99 L LDL Cholesterol, Calc 44 HDL Cholesterol 34 L TSH Nasal Screen MRSA (PCR) Negative for mrsa 10/31/19 10/31/19 04:30 04:30 WBC RBC Hgb Hct MCV MCH MCHC RDW Plt Count Neut % (Auto) Lymph % (Auto) [place] % (Auto) Eos % (Auto) Baso % (Auto) Neut # (Auto) Lymph # (Auto) [place] # (Auto) Eos # (Auto) Baso # (Auto) Sodium Potassium Chloride Carbon Dioxide BUN Creatinine Estimated GFR BUN/Creatinine Ratio Glucose Hemoglobin A1c 5.2 Calcium Magnesium Total Bilirubin Conjugated Bilirubin Unconjugated Bilirubin AST ALT Alkaline Phosphatase Total Protein Albumin Globulin Albumin/Globulin Ratio Triglycerides Cholesterol LDL Cholesterol, Calc HDL Cholesterol TSH 0.86 Nasal Screen MRSA (PCR) Assessment & Plan Assessment & Plan narrative: Brittni Major is a 59 year old adopted female with a past medical history of hypertension, rheumatic fever, and previous diagnosis of paroxysmal atrial fibrillation who presented with 2 days of worsening shortness of breath on exertion. She was admitted with afib with RVR. She remains on a diltiazem infusion and an echocardiogram showed severely reduced ejection fraction today. 1. Atrial fibrillation with rapid ventricular response, present on admission, likely acute -continue to titrate off diltiazem infusion for rate control -TSH unremarkable at 0.86. Fasting cholesterol was 99, LDL of 44, an HDL of 34. A1c was unremarkable at 5.2%. -current chads Vasc score is 3 given ejection fraction, will start anticoagulation with apixaban -patient states she was diagnosed with AFib a few years ago and was trialed on metoprolol but was unable to tolerate this. Will start Coreg 3.125 mg b.i.d.. -TTE: Left ventricular systolic function is severely reduced.The ejection fraction is estimated to be 10-15%.There is severe global hypokinesis of the left ventricle.Suspect increased left atrial pressure given elevated E/e'.The right ventricle is mildly dilated. Right ventricular systolic function is at the lower limits of normal. The left atrium is severely dilated. There is moderate tricuspid regurgitation. PA pressure is likely underestimated given there are multiple TR jets. CVP is elevated, estimated to be 15 mmHg. Stroke volume is reduced. No prior echo for comparison. -troponin within normal limits at 0.031 and no complaints of current chest pain. -discussed with cardiology, dr. joe today, who recommended digoxin loading 250 q6 hours for 4 doses then transition to 125 mcg daily and outpatient dig level in 1 week. He further recommended ischemic evaluation at some point, this does not need to be done as an inpatient. Recommended additional diuresis and aldactone, along with an yuridia/arb and beta sahil as blood pressure allows. 2. Hypertension, chronic -will hold home lisinopril and HCTZ in favor of rate control agents and diuretic agents at this time. Patient is currently with low normal blood pressures on diltiazem infusion. 3. Acute heart failure, present on admission, new diagnosis -echocardiogram as noted above with an EF of 10-15%. 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 -proBNP elevated to 13,500 on admission -patient has symptoms of dyspnea on exertion and cough. She did recently have a dental surgery, however I do not believe this to be contributing. -she further possibly has obstructive sleep apnea as she did desaturate overnight. Will consult respiratory therapy. -patient was given 20 mg of IV Lasix in the emergency room. She has minimal bibasilar crackles on exam and does not appear overtly overloaded at this time. Will resume Lasix 20 mg IV b.i.d. at this time given estimated elevated CVP at 15 to see if this helps with her symptoms. 4. Hyponatremia, unknown chronicity, present on admission -sodium of 129 on admission, it is unclear what her usual baseline is. Will continue to monitor. This may be in the setting of chronic alcoholism. improved slightly to 131 today and will continue to monitor. May be in setting of volume overload if she continues to improve with lasix therapy. 5. Possible CKD 3 verses elevated creatinine -patient with a creatinine of 1.1 on admission with an EGFR 50.8. Very similar today. Unclear if this is acute or chronic and unknown what her baseline is. 6. Alcoholic hepatitis, present on admission -mild with AST elevation to 146, and ALT elevation to 107 which improved today. These may be possibly elevated in the setting of congestion but more likely this is due to alcoholic disease. Will continue to trend and will consider abdominal ultrasound. Code: Full as discussed with the patient DVT: on apixaban Dispo: changed to inpatient status today. anticipate discharge home once rate controlled on oral agents. Scores CHADS-VASc Congestive heart failure: yes Hypertension: yes Age 75 years or older: no Diabetes mellitus: no Stroke, TIA, or TE: no Vascular disease: no Age 65 to 74 years: no Sex category (female): Female CHADS-VASc Score: 3
[2019-10-31] MEDS: DIGOXIN 500 MCG/2 ML AMPUL 250 MCG IV ×2 (16:51→22:18)
[2019-10-31] MEDS: FUROSEMIDE 20 MG/2 ML VIAL IV (16:52)
--- NOTE | 2019-10-31 20:40 | PC.NURSE ---
2039- Patient has voided 1500cc since lasix given. Patient noted to have increased PVC's. Krystina Myles SENIOR WEB ENGINEER was notified and declined to get BMP until AM. Will monitor.
[2019-10-31] MEDS: SENNOSIDES 8.6 MG TABLET 17.2 MG PO (21:07)
[2019-11-01] VITALS (18 sets, daily range): BP systolic 94–131; BP diastolic 58–87; PULSE 62–93; RESP 16–22; TEMP 36.2–36.6; O2SAT 87–97
[2019-11-01] MEDS: DIGOXIN 500 MCG/2 ML AMPUL 250 MCG IV ×2 (04:10→09:45)
[2019-11-01 04:38] LABS: Add Manual Diff / Slide Review NO; Basophils Absolute Auto 100 /uL (0-100); Basophils Percent Auto 1.2 % (0-2); Eosinophils Absolute Auto 300 /uL (0-450); Eosinophils Percent Auto 4.4 % (2-4); Hematocrit 38.1 % (36-46); Hemoglobin 13.4 g/dL (12.0-16.0); Lymphocytes Absolute Auto 1300 /uL (1100-4500); Lymphocytes Percent Auto 22.3 % (25-40); Mean Corpuscular HGB Conc 35.1 % (30-36); Mean Corpuscular Hemoglobin 35.9 PG (26-34); Mean Corpuscular Volume 102.3 fL (80-100); Monocytes Absolute Auto 400 /uL (0-900); Monocytes Percent Auto 6.3 % (3-14); Neutrophils Absolute Auto 3900 /uL (1500-7000); Neutrophils Percent Auto 65.8 % (50-75); Platelet Count 194 X10^3/uL (150-400); Red Blood Cell Count 3.72 X10^6/uL (4.0-5.2); Red Cell Distribution Width 13.8 % (11.6-14.8)
[2019-11-01 04:48] LABS: Alanine Aminotransferase 100 IU/L (<35); Albumin 3.5 g/dL (3.5-5.0); Albumin Globulin Ratio 1.3 (1.0-2.8); Alkaline Phosphatase 62 U/L (38-126); Aspartate Aminotransferase 101 IU/L (14-36); BUN Creatinine Ratio 22.3 (6-22); Bilirubin Total 0.9 mg/dL (0.2-1.3); Bilirubin Unconjugated 0.7 mg/dL (0.0-1.1); Blood Urea Nitrogen 21 mg/dL (7-17); Calcium 8.7 mg/dL (8.4-10.2); Carbon Dioxide 31 mmol/L (22-32); Chloride 92 mmol/L (98-107); Estimated Glomerular Filt Rate > 60.0 mL/min (>60); Globulin 2.8 g/dL (1.7-4.1); Glucose 113 mg/dL (70-100); HEMOLYSIS < 15 (0-50); Magnesium 1.9 mg/dL (1.6-2.3); Potassium 3.3 mmol/L (3.4-5.1); Sodium 129 mmol/L (137-145); Total Protein 6.3 g/dL (6.3-8.2)
[2019-11-01] MEDS: FUROSEMIDE 20 MG/2 ML VIAL IV (06:05)
[2019-11-01] MEDS: DILTIAZEM 125 MG/125 ML PIGGYBACK IV (07:37)
[2019-11-01] MEDS: carvediloL 3.125 MG TABLET PO ×2 (09:04→09:40)
[2019-11-01] MEDS: MULTIVITAMIN 1 TABLET 1 TAB PO (09:05)
[2019-11-01] MEDS: APIXABAN 5 MG TABLET PO ×2 (09:06→20:35)
[2019-11-01] MEDS: polyethylene glycoL 3350 17 GM POWD.PACK PO (09:06)
[2019-11-01] MEDS: ACETAMINOPHEN 325 MG TABLET 650 MG PO (09:10)
[2019-11-01 09:28] LABS: Ur Creatinine Normal (Normal); Ur Specific Gravity Normal (Normal); Urine pH Normal (Normal)
[2019-11-01 09:29] LABS: UR Morphine/Opiate cutoff 300 Negative (Negative); Urine Amphetamines Negative (Negative); Urine Barbiturates Negative (Negative); Urine Benzodiazepines Negative (Negative); Urine Cocaine Negative (Negative); Urine MDMA Negative (Negative); Urine Methadone Negative (Negative); Urine Methamphetamines Negative (Negative); Urine Oxycodone Negative (Negative); Urine Phencyclidine Negative (Negative); Urine Tetrahydrocannabinol Negative (Negative); Urine Tricyclic Antidepressant Negative (Negative)
[2019-11-01] MEDS: lisinopriL 5 MG TABLET PO ×2 (09:39→20:38)
--- NOTE | 2019-11-01 10:47 | P.PN_ITS ---
Subjective Subjective Date Patient Seen: 11/01/19 Interval history: Brittni Major is a 59-year-old adopted female with a past medical history of hypertension, rheumatic fever, and previous diagnosis of paroxysmal atrial fibrillation who presented with 2 days of worsening shortness of breath on exertion. The patient is resting comfortably in bedside chair. Her atrial fibrillation is well controlled with heart rate 80s on digoxin and carvedilol. She has been titrated off of diltiazem gtt. She reports her shortness of breath and dyspnea on exertion have markedly improved. She has no shortness of breath at rest and continues to have mild dyspnea on exertion. She has no further peripheral edema. Discussed her diagnosis of biventricular systolic congestive heart failure and possible causes including tachyarrhythmia induced cardiomyopathy, alcohol induced dilated cardiomyopathy, and/or ischemic cardiomyopathy. She endorses significant amount of alcohol use at least 5-6 beers per night and daughter is at bedside who corroborates and endorses even more substantial use. Patient plans to abstain from alcohol use. Plan for ischemic evaluation as an outpatient next several weeks per PCP and patient has called to start arranging this. She has no other complaints and denies headache, chest pain, shortness of breath, abdominal pain, nausea, vomiting, fever, chills, dysuria, diarrhea or constipation. She is voiding and eliminating without difficulty. She is up a mbulating without assistance. Exam Vital Signs (past 8 hours): - 11/01/19 03:05 11/01/19 04:00 11/01/19 04:05 Temperature 97.1 F L Pulse Rate 67 71 Respiratory Rate Blood Pressure 112/70 116/68 Pulse Oximetry 11/01/19 04:10 11/01/19 06:07 11/01/19 06:29 Temperature Pulse Rate 77 70 Respiratory Rate Blood Pressure 116/68 131/80 Pulse Oximetry 96 11/01/19 08:00 Temperature 97.7 F Pulse Rate 73 Respiratory Rate 22 Blood Pressure 119/87 Pulse Oximetry 96 Oxygen Delivery Method Nasal Cannula Oxygen Flow Rate 0 Narrative Exam Narrative: General: Middle-aged female sitting in bedside chair and in no acute distress, well-developed, well-nourished, appropriately interactive. HEENT: Normocephalic, atraumatic. External ears without defect. Pupils equal, round, and reactive to light. Anicteric sclerae, moist conjunctivae, and no lid lag. Oropharynx free of erythema and cobble stoning with moist mucosa. Neck: Supple with full range of motion. No jugular venous distension. No lymphadenopathy or thyromegaly. Cardiovascular: Irregularly irregular without murmurs, rubs, or gallops appreciated. Pulmonary: Clear to auscultation bilaterally without crackles, wheezes, or rhonchi. Normal respiratory effort with no use of accessory muscles. Abdomen: Soft, bowel sounds present, nontender, nondistended. No hepatosplenomegaly or masses appreciated. Extremities: No clubbing, cyanosis, or edema. Skin: Normal temperature, turgor, and texture; no rash, ulcers, or subcutaneous nodules appreciated. Neurological: Cranial nerves grossly intact. Psychiatric: Normal mood and affect. Alert and oriented to person, place, and time. Objective Labs Result Diagrams: 11/02/19 04:38 11/02/19 04:38 Labs: Laboratory Results - last 24 hr 11/01/19 11/01/19 11/01/19 04:15 04:15 09:19 WBC 6.0 RBC 3.72 L Hgb 13.4 Hct 38.1 MCV 102.3 H MCH 35.9 H MCHC 35.1 RDW 13.8 Plt Count 194 Neut % (Auto) 65.8 Lymph % (Auto) 22.3 L [place] % (Auto) 6.3 Eos % (Auto) 4.4 H Baso % (Auto) 1.2 Neut # (Auto) 3900 Lymph # (Auto) 1300 [place] # (Auto) 400 Eos # (Auto) 300 Baso # (Auto) 100 Sodium 129 L Potassium 3.3 L Chloride 92 L Carbon Dioxide 31 BUN 21 H Creatinine 0.94 Estimated GFR > 60.0 BUN/Creatinine Ratio 22.3 H Glucose 113 H Calcium 8.7 Magnesium 1.9 Total Bilirubin 0.9 Conjugated Bilirubin 0.0 Unconjugated Bilirubin 0.7 AST 101 H ALT 100 H Alkaline Phosphatase 62 Total Protein 6.3 Albumin 3.5 Globulin 2.8 Albumin/Globulin Ratio 1.3 U Opiates 300ng/mL cut Negative Ur Oxycodone Screen Negative Urine Methadone Screen Negative Ur Barbiturates Screen Negative U Tricyclic Antidepress Negative Ur Phencyclidine Scrn Negative Ur Amphetamines Screen Negative U Methamphetamines Scrn Negative Ur MDMA Scrn (Ecstasy) Negative U Benzodiazepines Scrn Negative Urine Cocaine Screen Negative U Marijuana (THC) Screen Negative Assessment & Plan Assessment & Plan narrative: Brittni Major is a 59-year-old adopted female with a past medical history of hypertension, rheumatic fever, and previous diagnosis of paroxysmal atrial fibrillation who presented with 2 days of worsening shortness of breath on exertion. 1. Atrial fibrillation with rapid ventricular response, likely chronic, present on admission. RVR resolved. -Patient presented with dypnea on exertion, orthopnea, and fatigue. Patient previously diagnosed with paroxysmal atrial fibrillation. -EKG demonstrated atrial fibrillation with RVR and HR 163 and without acute ischemic changes such as ST elevation or depression. Troponin within normal limits at 0.031 and no complaints of current chest pain. -TSH unremarkable at 0.86. -[id number] score is 3. Started and continue Eliquis 5 mg twice daily. -Echocardiogram demonstrated left ventricular systolic function is severely reduced with EF 10-15%, severe global hypokinesis of the left ventricle, suspect increased left atrial pressure given elevated E/e', right ventricle is mildly dilated and right ventricular systolic function is at the lower limits of normal, left atrium is severely dilated, moderate tricuspid regurgitation, PA pressure is likely underestimated given there are multiple TR jets, CVP is elevated, estimated to be 15 mmHg, stroke volume is reduced. No prior echo for comparison. -Started diltiazem gtt in ED for rate control. Started carvedilol 3.125 mg twice daily and titrated up to 6.25 mg twice daily and received digoxin load of 260 mcg every 6 hours for 24 hours then and started digoxin 125 mcg daily, and lisinopril 5 mg twice daily at recommendations of cardiology. Could consider spironolactone if BP allows. Cardiology further recommended ischemic evaluation as below. 2. Newly diagnosed systolic congestive heart failure with acute exacerbation, present on admission. Resolved. -Patient presented with dyspnea on exertion and cough. -Echocardiogram as noted above with an EF of 10-15%. 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 -ProBNP elevated at 13,500 on admission. -Received furosemide 20 mg IV x 1 in ED. Continued furosemide 20 mg IV twice daily then discontinued today as patient appears euvolemic. -Continue to monitor strict I&O's and daily weights. Net - 3.5 L. -Cardiology recommended ischemic evaluation in next several weeks as an outpatient. Further risk stratified with fasting lipid panel which demonstrated excellent lipid control with: Total cholesterol 99, triglycerides 107, LDL 44, a nd HDL 34 and hemoglobin A1c normal at 5.2%. 3. Hypertension, chronic, present on admission. Stable, -Initially held home lisinopril and HCTZ in favor of rate control. Started carvedilol and increased from 3.125 mg to 6.25 mg twice daily for better rate control and titrate off diltiazem gtt. Restarted lisinopril at lower dose of 5 mg twice daily due to variable BP in setting of rate control and diuresis.Could consider spironolactone if BP allows. -Continue to monitor BP closely. 4. Hyponatremia, unknown chronicity, present on admission. -Likely multifactorial and secondary to chronic alcoholism, HCTZ use, and volume overload with biventricular systolic heart failure. -Initial sodium level 129 on admission. Unclear baseline. Sodium level 129. -Continue to monitor sodium level closely. 5. Probable elevated creatinine versus CKD 3, present on admission. Resolved. -Initial creatinine 1.1. Unclear baseline creatinine. Creatinine now 0.94. -Avoid nephrotoxic agents. -Continue to monitor creatinine closely. 6. Alcoholic hepatitis, secondary to alcohol dependence, acuity unknown but likely chronic, present on admission. Resolving. -Mild transaminitis with AST 146 and ALT 107. LFTs improving with cessation from alcohol while hospitalized. Unlikely that fluid overload contributed. -Continue to monitor LFTs daily. Code status: Full Code, surrogate decision maker patient's daughter VTE prophylaxis: Lizbeth Polanco Disposition: Patient likely to discharge in the next 1-2 days pending heart rate control and implementation of appropriate medications for biventricular s ystolic congestive heart failure.
[2019-11-01] MEDS: POTASSIUM CHLORIDE 20 MEQ TAB 40 MEQ PO ×2 (13:39→16:33)
[2019-11-01] MEDS: MAGNESIUM CHLORIDE 64 MG TABLET 128 MG PO (18:46)
[2019-11-01] MEDS: SENNOSIDES 8.6 MG TABLET 17.2 MG PO (20:38)
[2019-11-01] MEDS: carvediloL 6.25 MG TABLET PO (20:39)
[2019-11-02 00:29] VITALS: BP 101/57; PULSE 57; RESP 16; TEMP 36.5; O2SAT 91
[2019-11-02 04:09] VITALS: BP 123/86; PULSE 73; RESP 18; TEMP 36.3; O2SAT 95
[2019-11-02 05:14] LABS: Add Manual Diff / Slide Review NO; Basophils Absolute Auto 100 /uL (0-100); Basophils Percent Auto 1.3 % (0-2); Eosinophils Absolute Auto 200 /uL (0-450); Eosinophils Percent Auto 3.8 % (2-4); Hematocrit 38.3 % (36-46); Hemoglobin 12.9 g/dL (12.0-16.0); Lymphocytes Absolute Auto 1100 /uL (1100-4500); Lymphocytes Percent Auto 22.3 % (25-40); Mean Corpuscular HGB Conc 33.7 % (30-36); Mean Corpuscular Hemoglobin 34.5 PG (26-34); Mean Corpuscular Volume 102.4 fL (80-100); Monocytes Absolute Auto 500 /uL (0-900); Neutrophils Absolute Auto 3200 /uL (1500-7000); Neutrophils Percent Auto 62.6 % (50-75); Platelet Count 212 X10^3/uL (150-400); Red Blood Cell Count 3.74 X10^6/uL (4.0-5.2); Red Cell Distribution Width 13.8 % (11.6-14.8); White Blood Cell Count 5.1 X10^3/uL (4.5-11.0)
[2019-11-02 05:33] LABS: Alanine Aminotransferase 78 IU/L (<35); Albumin 3.4 g/dL (3.5-5.0); Albumin Globulin Ratio 1.2 (1.0-2.8); Alkaline Phosphatase 65 U/L (38-126); Aspartate Aminotransferase 66 IU/L (14-36); BUN Creatinine Ratio 16.3 (6-22); Bilirubin Total 0.8 mg/dL (0.2-1.3); Bilirubin Unconjugated 0.7 mg/dL (0.0-1.1); Blood Urea Nitrogen 14 mg/dL (7-17); Calcium 8.8 mg/dL (8.4-10.2); Carbon Dioxide 28 mmol/L (22-32); Chloride 102 mmol/L (98-107); Estimated Glomerular Filt Rate > 60.0 mL/min (>60); Globulin 2.9 g/dL (1.7-4.1); Glucose 78 mg/dL (70-100); HEMOLYSIS < 15 (0-50); Magnesium 2.1 mg/dL (1.6-2.3); Sodium 135 mmol/L (137-145); Total Protein 6.3 g/dL (6.3-8.2)
[2019-11-02 08:00] VITALS: BP 141/81; PULSE 75; RESP 18; TEMP 36.6; O2SAT 94
[2019-11-02 08:14] VITALS: PULSE 105
[2019-11-02] MEDS: POTASSIUM CHLORIDE 20 MEQ TAB 40 MEQ PO (08:14)
[2019-11-02] MEDS: APIXABAN 5 MG TABLET PO (08:14)
[2019-11-02] MEDS: lisinopriL 5 MG TABLET PO (08:14)
[2019-11-02] MEDS: MULTIVITAMIN 1 TABLET 1 TAB PO (08:14)
[2019-11-02] MEDS: carvediloL 6.25 MG TABLET PO (08:14)
[2019-11-02 12:00] VITALS: BP 100/66; PULSE 65; RESP 18; TEMP 36.5; O2SAT 94
[2019-11-02 12:29] VITALS: PULSE 101
[2019-11-02] MEDS: DIGOXIN 0.125 MG TABLET PO (12:29)
--- NOTE | 2019-11-02 12:50 | P.DS_ITS ---
History of Present Illness History of Present Illness Date Patient Seen: 10/30/19 Chief complaint: low b/p/hr high/constipation x2 days Narrative: Written by Dr. Godinez: Brittni Major is a 59 year old adopted female with a past medical history of hypertension, rheumatic fever, and previous diagnosis of paroxysmal atrial fibrillation who presented with 2 days of worsening shortness of breath on exertion. Patient states for the past few months she has had a chronic cough and worsening shortness of breath on exertion. So much so that she had to stop her job. She states approximately 2 years ago she was diagnosed with an irregular heart rhythm and was given metoprolol but she could not tolerate it due to fatigue and headaches. She had been really asymptomatic until a few months ago when she started noticing that she was more short of breath and had a cough. She saw her primary care provider who gave her steroids for presumed asthma, which did help but when she stopped her steroids her cough returned. She was going to try and stop lisinopril. She then developed some issues with her teeth which required removal. She was given antibiotics prior to the procedure, amoxicillin, which she thinks made her legs swell, but after her procedure she noticed that she could not walk more than a few feet without getting short of breath, her cough worsened, and her heart rate was really fast. While at the dentist, she states the dentist did notice that she had a hard heart rate but this was prior to injecting her with local anesthetic. She went to the [facility] yesterday who did an EKG and was going to call a echo technician and get an echocardiogram next Monday, but the patient had still continued symptoms and decided to come to the emergency room today. Patient states that she drinks approximately 5-6 alcoholic beverages a night, with the last drink being Monday prior to her dental procedure. She has been unable to sleep over the past few nights due to her present symptoms.. In the emergency room her initial heart rate was in the 160s, with a mildly elevated blood pressure, but otherwise unremarkable vital signs. She appeared short of breath at rest per the emergency room provider. EKG showed atrial fibrillation with a rate of 163 and nonspecific T-wave abnormalities but no significant ST depressions or elevations. Initial laboratory evaluation showed an unremarkable CBC, mildly elevated INR at 1.4, a sodium of 129, creatinine of 1.1 with an EGFR of 50.8. AST was mildly elevated 146 will ALT was 107. Initial troponin was 0.031. Patient was not complaining of chest pain[place] [id number]. COVID-19 PCR is pending. Patient was admitted under observation status to the ICU on a diltiazem infusion for atrial fibrillation with rapid ventricular response. Discharge Providers Provider Date of admission: 10/30/19 14:06 Discharge Date: 11/02/19 Primary care physician: Dahlia Diana PA-C Consults: 10/30/19 15:46 Consult to Dietitian, Adult Routine Comment: Reason For Exam: afib, etoh 10/31/19 17:31 Consult to Respiratory Therapy Evaluate & Treat Comment: Physician Instructions: Evaluate and treat Discharge provider: Johana Avila DO Summary Hospital Course Discharge Diagnosis: 1. Atrial fibrillation with rapid ventricular response, likely chronic, present on admission. RVR resolved. 2. Newly diagnosed systolic congestive heart failure with acute exacerbation, present on admission. Resolved. 3. Hypertension, chronic, present on admission. Stable, 4. Hyponatremia, unknown acuity, present on admission. Resolved 5. Elevated creatinine versus CKD 3, present on admission. Resolved. 6. Alcoholic hepatitis in setting of alcohol dependence, acuity unknown but likely chronic, present on admission. Resolving. Hospital Course: Brittni Major is a 59-year-old adopted female with a past medical history of hypertension, rheumatic fever, and previous diagnosis of paroxysmal atrial fibrillation who presented with 2 days of worsening shortness of breath on exertion. 1. Atrial fibrillation with rapid ventricular response, likely chronic, present on admission. RVR resolved. -Patient presented with dypnea on exertion, orthopnea, and fatigue. Patient previously diagnosed with paroxysmal atrial fibrillation. -EKG demonstrated atrial fibrillation with RVR and HR 163 and without acute ischemic changes such as ST elevation or depression. Troponin within normal limits at 0.031 and no complaints of current chest pain. -TSH unremarkable at 0.86. -[id number] score is 3. Started and continue Eliquis 5 mg twice daily. -Echocardiogram demonstrated left ventricular systolic function is severely reduced with EF 10-15%, severe global hypokinesis of the left ventricle, suspect increased left atrial pressure given elevated E/e', right ventricle is mildly dilated and right ventricular systolic function is at the lower limits of no rmal, left atrium is severely dilated, moderate tricuspid regurgitation, PA pressure is likely underestimated given there are multiple TR jets, CVP is elevated, estimated to be 15 mmHg, stroke volume is reduced. No prior echo for comparison. -Started diltiazem gtt in ED for rate control and titrated off as HR improved with carvedilol 6.25 mg twice daily and digoxin load of 260 mcg every 6 hours fo r 24 hours then and digoxin 125 mcg daily at recommendations of cardiology. HR 70-90's at rest. 2. Newly diagnosed systolic congestive heart failure with acute exacerbation, present on admission. Resolved. -Patient presented with dyspnea on exertion and cough. -Echocardiogram as noted above with an EF of 10-15%. 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 -ProBNP elevated at 13,500 on admission. -Received furosemide 20 mg IV x 1 in ED. Continued furosemide 20 mg IV twice daily then discontinued as patient appears euvolemic. Discharged with furosemide 20 mg daily if needed for shortness of breath or signs of volume overload and instructed to follow-up with PCP or echo technician immediately. -Started and continued carvedilol 6.25 mg twice daily and restarted lisinopril at lower dose of 5 mg twice daily due to variable BP in setting of rate control and diuresis. Could consider spironolactone if BP allows. -Continued to monitor strict I&O's and daily weights. Net - 6 L. -Cardiology recommended ischemic evaluation in next several weeks as an outpatient. Further risk stratified with fasting lipid panel which demonstrated excellent lipid control with: Total cholesterol 99, triglycerides 107, LDL 44, and HDL 34 and hemoglobin A1c normal at 5.2%. 3. Hypertension, chronic, present on admission. Stable, -Initially held home lisinopril and HCTZ in favor of rate control. Started and continued carvedilol 6.25 mg twice daily for rate control. Restarted lisinopril at lower dose of 5 mg twice daily due to variable BP in setting of rate control and diuresis. Could consider spironolactone as outpatient if BP allows. -Continued to monitor BP closely which remained labile. 4. Hyponatremia, unknown acuity, present on admission. Resolved. -Likely multifactorial and secondary to chronic alcoholism, HCTZ use, and volume overload with biventricular systolic heart failure. -Initial sodium level 129 on admission. Unclear baseline. Sodium level normalized 135 with diuresis in setting of newly diagnosed systolic heart failure and cessation of alcohol use and HCTZ. -Continued to monitor sodium level closely. 5. Elevated creatinine versus CKD 3, present on admission. Resolved. -Initial creatinine 1.1. Unclear baseline creatinine. Creatinine improved to 0.86. -Avoided nephrotoxic agents. -Continued to monitor creatinine closely. 6. Alcoholic hepatitis in setting of alcohol dependence, acuity unknown but likely chronic, present on admission. Resolving. -Mild transaminitis with AST 146 and ALT 107. LFTs trending down and nearly normalized with cessation from alcohol while hospitalized. Unlikely that fluid overload contributed. -Continued to monitor LFTs daily. -Recommended indefinite cessation of alcohol in which the patient reports she will never use again. -Consulted MENTAL HEALTH COORDINATOR and we appreciate her time and resources provided. Exam Vital Signs (past 8 hours): - 11/02/19 08:00 11/02/19 08:14 11/02/19 12:29 Temperature 97.9 F Pulse Rate 75 105 H 101 H Respiratory Rate 18 Blood Pressure 141/81 H Pulse Oximetry 94 Oxygen Delivery Method Room Air Oxygen Flow Rate 0 Narrative Exam Narrative: General: Middle-aged female sitting in bedside chair and in no acute distress, well-developed, well-nourished, appropriately interactive. HEENT: Normocephalic, atraumatic. External ears without defect. Pupils equal, round, and reactive to light. Anicteric sclerae, moist conjunctivae, and no lid lag. Oropharynx free of erythema and cobble stoning with moist mucosa. Neck: Supple with full range of motion. No jugular venous distension. No lymphadenopathy or thyromegaly. Cardiovascular: Irregularly irregular without murmurs, rubs, or gallops appreciated. Pulmonary: Clear to auscultation bilaterally without crackles, wheezes, or rhonchi. Normal respiratory effort with no use of accessory muscles. Abdomen: Soft, bowel sounds present, nontender, nondistended. No hepatosplenomegaly or masses appreciated. Extremities: No clubbing, cyanosis, or edema. Skin: Normal temperature, turgor, and texture; no rash, ulcers, or subcutaneous nodules appreciated. Neurological: Cranial nerves grossly intact. Psychiatric: Normal mood and affect. Alert and oriented to person, place, and time. Objective Labs Result Diagrams: 11/02/19 04:38 11/02/19 04:38 Labs: Laboratory Results - last 24 hr 11/02/19 11/02/19 04:38 04:38 WBC 5.1 RBC 3.74 L Hgb 12.9 Hct 38.3 MCV 102.4 H MCH 34.5 H MCHC 33.7 RDW 13.8 Plt Count 212 Neut % (Auto) 62.6 Lymph % (Auto) 22.3 L Anson % (Auto) 10.0 Eos % (Auto) 3.8 Baso % (Auto) 1.3 Neut # (Auto) 3200 Lymph # (Auto) 1100 Anson # (Auto) 500 Eos # (Auto) 200 Baso # (Auto) 100 Sodium 135 L Potassium 4.0 Chloride 102 Carbon Dioxide 28 BUN 14 Creatinine 0.86 Estimated GFR > 60.0 BUN/Creatinine Ratio 16.3 Glucose 78 Calcium 8.8 Magnesium 2.1 Total Bilirubin 0.8 Conjugated Bilirubin 0.0 Unconjugated Bilirubin 0.7 AST 66 H ALT 78 H Alkaline Phosphatase 65 Total Protein 6.3 Albumin 3.4 L Globulin 2.9 Albumin/Globulin Ratio 1.2 Discharge Plan Discharge Plan Patient Disposition: Home Discharge comment: You are being discharged home. You have atrial fibrillation or an irregular heartbeat and have been started on medication to control your heart rate including carvedilol 6.25 mg twice daily (which may or may not need to be increased in the future if your heart rate is not well controlled) and dig oxin 125 mcg daily. Atrial fibrillation places you at higher risk for blood clots and you have been started on Eliquis 5 mg twice daily to prevent these. You have congestive heart failure with an ejection fraction 10-15% (ejection fraction of 55-60% is normal) and have been started on furosemide 20 mg daily if needed for shortness of breath lower extremity swelling or weight gain. Your hydrochlorothiazide has been discontinued. Your lisinopril has been decreased from 40 mg daily to 5 mg twice daily. Please try to a low-sodium diet and do not drink excessive amounts of fluids (1.5-2 liters a day in all fluid). Your congestive heart failure is likely multifactorial and related to your fast irregular heartbeat overtime which caused weakening your heart muscle, as well as, excessive alcohol use which changed the structure of your heart and dilated it resulting in weakening of the heart muscle. Please abstain from alcohol indefinitely. The social work administrator provided you resources for additional outpatient support to help with alcohol cessation. Recommend an outpatient stress test to assure that you do not have a blockage in the arteries of your heart that has contributed to your heart failure and weakening of your heart muscle. Please follow-up with your primary care provider, Dr. Mcintyre, in the next 1 week regarding your hospitalization and obtain a stress test. Discharge orders & Medications Prescriptions: New carvedilol [Coreg] 6.25 mg Tablet 6.25 mg PO BID Qty: 60 RF: 0 digoxin 125 mcg (0.125 mg) Tablet 0.125 mg PO DAILY Qty: 30 RF: 0 Eliquis 5 mg Tablet 5 mg PO BID Qty: 60 RF: 0 furosemide 20 mg tablet 20 mg PO DAILY PRN (Reason: weight gain, edema, shortness of breath) Qty: 30 RF: 0 lisinopril 5 mg Tablet 5 mg PO BID Qty: 60 RF: 0 Continued calcium carbonate [Calcium 600] 600 mg calcium (1,500 mg) Tablet 600 mg PO BID RF: 0 Flovent HFA 44 mcg/actuation Hfa Aerosol Inhaler 1 inh INHALATION PRN PRN (Reason: Wheezing) RF: 0 albuterol sulfate [Ventolin HFA] 90 mcg/actuation Hfa Aerosol Inhaler 2 puff INHALATION Q6H PRN (Reason: Wheezing) RF: 0 cholecalciferol (vitamin D3) [Vitamin D3] 1,000 unit Capsule 1,000 unit PO DAILY RF: 0 glucosamine-chondroitin [Osteo Bi-Flex] 250-200 mg Tablet 1 tab PO DAILY RF: 0 multivitamin Tablet,Chewable 4 tab PO DAILY RF: 0 Fiber Gummies 2 gram Tablet,Chewable 4 g PO DAILY RF: 0 Discontinued hydrochlorothiazide 25 mg Tablet 25 mg PO DAILY RF: 0 lisinopril 40 mg Tablet 40 mg PO DAILY RF: 0 Follow up/Referrals: Flori Mcintyre MD [Non-Staff] - 1 Week Diet/Activity/Treatments Diet: Low-fat, Low-sodium and Low-cholesterol Activity: Activity as tolerated Visit Report/Discharge Packet Instructions: Getting to the Heart of a Healthy Diet: Alcohol, The Mediterranean Diet and Good Health, DI for Heart Failure, DI for Atrial Fibrillation, DI for Alcohol Use Disorder, Fluid Restricted Diet, Low-Sodium Diet, Carvedilol, Apixaban, Heart Failure: Salt and Fluids, Digoxin (By mouth), Furosemide (By mouth) Stand Alone Forms: Congestive Heart Failure Visit Report Forms: Patient Portal/API, Stroke Signs & Symptoms Discharge Data Primary Care Provider: Dahlia Diana Discharges patient from system. Discharge Date/Time: 11/02/19 14:10
--- NOTE | 2019-11-02 14:10 | PC.NURSE ---
Provided d/c packet and educational materials to pt/family member. Reviewed educational material in great detail regarding diagnoses, medications, s/s requiring emergency medical treatment, monitoring parameters, need for f/u appt/labs. Pt/family member verbalize understanding of teaching and state they have no questions at this time. Pt was able to dress herself. Her PIV was removed and telemetry off. She left at 1410 via w/c in no distress escorted by RN. All belongings sent with pt.
--- NOTE | 2019-11-02 15:00 | CM.DPNOTE ---
DC Note Dr Avila has completed patient's DC for return home today w/close outpt f/u. Dr Avila will send patient on new Rx Eliquis, per patient and Dr Avila- patient has good medical/Rx insurance coverage between [employer] and [facility] so there is not concern about filling/paying for Eliquis. Dr Avila asks this BOX CLOSING MACHINE OPERATOR to discuss ETOH use/treatment recovery resources w/patient before she leaves. Met w/patient and had a lengthy, very pleasant conversation. Patient in good spirits today; Patient kindly declines the offer for outpatient CODY/recovery resources and explains she has a great deal of family support to remain sober and knows many people in her community that have h/o ETOH use and have quit drinking. Patient intends to remain sober, stating she has a new home being built for her and numerous kids, grand kids and great grandchildren to live for. 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 P: DC home w/family and close outpt f/u, no further needs identified from this BOX CLOSING MACHINE OPERATOR JIMMIE Leung
== END 2019-11-02 14:10 | disposition home or self-care (01) | DRG 308 ==
LOC: ED 13:59 → AC 14:27 → ICU 10-31 11:12 → AC 10-31 16:22 → ICU 10-31 16:35
PROVIDERS: Internal Medicine; Admitting Provider Internal Medicine; Emergency Provider Emergency Medicine; PCP Physician Assistant; Referring Provider Emergency Medicine; Visit Provider Internal Medicine
DX: I48.91 Unspecified atrial fibrillation (principal); I50.21 Acute systolic (congestive) heart failure; E87.1 Hypo-osmolality and hyponatremia; I13.0 Hypertensive heart and chronic kidney disease with heart failure and stage 1 through stage 4 chronic kidney disease, or unspecified chronic kidney disease; K70.10 Alcoholic hepatitis without ascites; I05.1 Rheumatic mitral insufficiency; N18.3 Chronic kidney disease, stage 3 (moderate); R94.4 Abnormal results of kidney function studies
CPT/HCPCS: 36415; 51798; 71045; 80048; 80053; 80061; 80076; 80305; 82550; 82962; 83036; 83690; 83735; 83880; 84443; 84484; 85025; 85610; 85730; 87635; 87797; 93005; 93306; 94760; 96365; 96375; 96376; 99284; J1160; J1940

== ENCOUNTER → 2019-11-07 11:13 | Outpatient (CLI) | payer OTHER, SELFPAY ==
[2019-10-30 15:57] VITALS: BMI 33.5
[2019-11-07 12:21] LABS: BUN Creatinine Ratio 21.2 (6-22); Blood Urea Nitrogen 22 mg/dL (7-17); Calcium 9.2 mg/dL (8.4-10.2); Carbon Dioxide 29 mmol/L (22-32); Chloride 106 mmol/L (98-107); Estimated Glomerular Filt Rate 54.2 mL/min (>60); Glucose 86 mg/dL (70-100); HEMOLYSIS < 15 (0-50); Potassium 4.6 mmol/L (3.4-5.1); Sodium 140 mmol/L (137-145)
[2019-11-07 13:17] LABS: Digoxin 0.9 ng/mL (0.8-2.0)
== END ==
PROVIDERS: Internal Medicine; PCP Family Medicine; Referring Provider Internal Medicine Cardiovascular Disease; Visit Provider Internal Medicine Cardiovascular Disease
DX: I50.22 Chronic systolic (congestive) heart failure (principal); Z51.81 Encounter for therapeutic drug level monitoring
CPT/HCPCS: 36415; 80048; 80162

== ENCOUNTER 2019-11-14 10:02 | Emergency (ER) | payer OTHER, SELFPAY ==
[2019-10-30 15:57] VITALS: BMI 33.5
[2019-11-14] VITALS (15 sets, daily range): BP systolic 92–121; BP diastolic 62–84; PULSE 93–160; RESP 16–28; O2SAT 95–97; BMI 31.6
--- NOTE | 2019-11-14 10:12 | DI.RAD.S_ITS ---
PROCEDURE: XR CHEST 1V INDICATIONS: chest pain TECHNIQUE: One view of the chest was acquired. COMPARISON: [facility], CR, XR CHEST 1V, 10/30/2019, 13:24. FINDINGS: Surgical changes and devices: None. Lungs and pleura: Lungs are clear. No pleural effusions or pneumothorax. Mediastinum: Mediastinal contours appear normal. Heart size is moderately enlarged. Bones and chest wall: No suspicious bony lesions. Overlying soft tissues appear unremarkable. IMPRESSION: Moderate cardiomegaly is not significantly changed when compared to the prior radiographs from 10/30/2019. No acute pulmonary opacity is seen. Dictated by: Keo Juarez M.D. on 11/14/2019 at 10:24 Approved by: Keo Juarez M.D. on 11/14/2019 at 10:26
[2019-11-14 10:21] LABS: Add Manual Diff / Slide Review NO; Basophils Absolute Auto 100 /uL (0-100); Basophils Percent Auto 1.3 % (0-2); Eosinophils Absolute Auto 100 /uL (0-450); Eosinophils Percent Auto 0.7 % (2-4); Hematocrit 41.7 % (36-46); Hemoglobin 14.1 g/dL (12.0-16.0); Lymphocytes Absolute Auto 1900 /uL (1100-4500); Lymphocytes Percent Auto 26.5 % (25-40); Mean Corpuscular HGB Conc 33.7 % (30-36); Mean Corpuscular Hemoglobin 34.4 PG (26-34); Monocytes Absolute Auto 400 /uL (0-900); Monocytes Percent Auto 6.4 % (3-14); Neutrophils Absolute Auto 4600 /uL (1500-7000); Neutrophils Percent Auto 65.1 % (50-75); Platelet Count 309 X10^3/uL (150-400); Red Blood Cell Count 4.09 X10^6/uL (4.0-5.2); Red Cell Distribution Width 13.8 % (11.6-14.8)
[2019-11-14 10:34] LABS: Alanine Aminotransferase 30 IU/L (<35); Albumin 4.1 g/dL (3.5-5.0); Albumin Globulin Ratio 1.2 (1.0-2.8); Alkaline Phosphatase 56 U/L (38-126); Aspartate Aminotransferase 39 IU/L (14-36); Blood Urea Nitrogen 23 mg/dL (7-17); Calcium 9.6 mg/dL (8.4-10.2); Carbon Dioxide 25 mmol/L (22-32); Chloride 102 mmol/L (98-107); Creatine Kinase 59 U/L (30-135); Estimated Glomerular Filt Rate 48.3 mL/min (>60); Globulin 3.3 g/dL (1.7-4.1); Glucose 141 mg/dL (70-100); HEMOLYSIS < 15 (0-50); Lipase 185 U/L (23-300); Potassium 4.2 mmol/L (3.4-5.1); Sodium 138 mmol/L (137-145); Total Protein 7.4 g/dL (6.3-8.2)
--- NOTE | 2019-11-14 10:36 | ED.ARRPALP ---
HPI - Arrhythmia/Palpitations General Chief Complaint: Arrhythmia/Palpitations Stated Complaint: high heart rate Time Seen by Provider: 11/14/19 10:15 Source: patient Mode of arrival: Ambulatory Limitations: no limitations History of Present Illness HPI narrative: Patient is a 59-year-old female with history of paroxysmal atrial fibrillation and congestive heart failure likely alcohol in boost presenting with heart palpitations and shortness of breath. She was actually just admitted here October 29 through the and found to have an EF of 10-15%. She was followed up by cardiology Dr. Bryant her medications were changed, her digoxin and Coreg were stopped and she was placed on metoprolol X are 50 mg twice a day. Her heart rate currently is 140-150 in AFib with RVR. She is having some shortness of breath but she says it is not as bad as last time she usually retains water in her abdomen. She has difficulty breathing with exertion she denies orthopnea no fever or cough. She is on Eliquis that that was started during her most recent admission. MD complaint: rapid heart beat Related Data Home Medications Medication Instructions Recorded Confirmed Flovent HFA 1 inh INHALATION PRN PRN 12/14/18 10/30/19 albuterol sulfate [Ventolin HFA] 2 puff INHALATION Q6H PRN 12/14/18 10/30/19 calcium carbonate [Calcium 600] 600 mg PO BID 12/14/18 10/30/19 cholecalciferol (vitamin D3) 1,000 unit PO DAILY 12/14/18 10/30/19 [Vitamin D3] glucosamine-chondroitin [Osteo 1 tab PO DAILY 12/14/18 10/30/19 Bi-Flex] multivitamin 4 tab PO DAILY 12/14/18 10/30/19 Fiber Gummies 4 g PO DAILY 10/30/19 10/30/19 Previous Rx's Medication Instructions Recorded apixaban [Eliquis] 5 mg PO BID #60 tab 11/02/19 carvedilol [Coreg] 6.25 mg PO BID #60 tab 11/02/19 digoxin 0.125 mg PO DAILY #30 tab 11/02/19 furosemide 20 mg PO DAILY PRN #30 tab 11/02/19 lisinopril 5 mg PO BID #60 tab 11/02/19 amiodarone 200 mg PO BID #60 tab 09/17/20 Allergies Allergy/AdvReac Type Severity Reaction Status Date / Time bee venom protein (honey bee) Allergy Intermediate swelling Verified 12/14/18 07:29 at the site fluticasone [From Flonase] AdvReac Mild bloody nose Verified 12/14/18 07:29 ENVIRONMENTAL ALLERGIES Allergy Unknown Uncoded 06/07/17 11:57 Review of Systems Review of Systems ROS Unobtainable: All systems reviewed & are unremarkable except as noted in HPI and below Constitutional Constitutional: Denies chills, Denies fever(s), Denies lethargy and Denies weakness Eyes Eyes: Denies change in vision, Denies eye discharge, Denies irritation and Denies loss of vision ENT Ears, Nose, Mouth, and Throat: Denies change in voice, Denies neck pain and Denies sore throat Cardiovascular Cardiovascular: Reports as per HPI, Reports irregular heart rhythm, Denies leg edema and Reports dyspnea on exertion Respiratory Respiratory: Reports as per HPI and Reports dyspnea on exertion Gastrointestinal Gastrointestinal: Denies abdominal pain, Denies change in bowel habits, Denies diarrhea, Denies nausea and Denies vomiting Musculoskeletal Musculoskeletal: Denies neck pain Integumentary/Breasts Skin/Breast: Denies pruritus, Denies erythema, Denies rash and Denies wounds Neurologic Neurologic: Denies loss of vision and Denies weakness Patient History Medical History Asthma (Acute) CHF (congestive heart failure) (Acute) Hypertension (Acute) Rheumatic mitral regurgitation (Acute) Surgical History History of cholecystectomy (Acute) History of tonsillectomy (Acute) Social History household members: none Smoking Status: Former smoker alcohol intake: current Smoking Status: Former smoker alcohol intake frequency: 3 or more drinks per day Substance Use Type: does not use Exam Initial Vital Signs Initial Vital Signs: Vital Signs Pulse Rate 160 H 11/14/19 10:11 Respiratory Rate 18 11/14/19 10:11 Blood Pressure 121/73 11/14/19 10:11 Pulse Oximetry 97 11/14/19 10:11 GENERAL: Well-appearing, well-nourished and in no acute distress. HEENT: Head atraumatic,EOMI, pupils reactive, face symmetric, moist mucous membranes CARDIOVASCULAR: Irregularly irregular normal RESPIRATORY: Breath sounds equal bilaterally, no wheezes rales or rhonchi. ABDOMEN: Soft, nontender. Normoactive bowel sounds all 4 quadrants. No guarding or rebound. EXTREMITIES: Normal range of motion, no clubbing or edema. Neurovascularly intact NEUROLOGICAL: Alert and oriented x4.Normal gait and speech. SKIN: Warm, dry, no laceration, no petechiae, no rashes or lesions. Course Orders Ordered: ED Orders 11/14/19 10:10 Complete Blood Count AUTO DIFF Stat Comprehensive Metabolic Panel Stat Lipase Stat NT-proBNP (BNP-Adult 18+) Stat Partial Thromboplastin Time Stat Prothrombin Time INR Stat Troponin & CK Cardiac Panel Stat 11/14/19 10:12 XR chest 1V Stat EKG-12 Lead Stat Discontinued Medications Diltiazem HCl (Cardizem) 10 mg IV NOW ONE Stop: 11/14/19 11:11 Last Admin: 11/14/19 11:19 Dose: 10 mg Documented by: ASHOK Amiodarone HCl/Dextrose (Nexterone) 150 mg in 100 mls @ 600 mls/hr IV NOW ONE; Protocol Stop: 11/14/19 12:40 Last Infusion: 11/14/19 13:21 Dose: 0 mls/hr Documented by: Admin: 11/14/19 12:44 Dose: 200 mls/hr Documented by: ASHOK Metoprolol Tartrate (Lopressor) 5 mg IV NOW ONE Stop: 11/14/19 10:44 Last Admin: 11/14/19 10:49 Dose: 5 mg Documented by: AHSOK Vital Signs Vital signs: Vital Signs - 8 hr 11/14/19 10:46 11/14/19 11:00 11/14/19 11:19 Pulse Rate 148 H 140 H 138 H Respiratory Rate 22 28 H 27 H Blood Pressure 118/74 92/62 Pulse Oximetry 96 97 95 11/14/19 11:21 11/14/19 11:30 11/14/19 11:31 Pulse Rate 132 H 102 H 100 H Respiratory Rate 26 H 25 H 24 Blood Pressure 101/79 100/74 Pulse Oximetry 97 95 97 11/14/19 12:00 11/14/19 12:30 11/14/19 12:46 Pulse Rate 104 H 124 H 130 H Respiratory Rate 28 H 20 20 Blood Pressure 99/73 108/81 Pulse Oximetry 96 95 96 11/14/19 13:00 11/14/19 13:01 11/14/19 13:50 Pulse Rate 126 H 128 H 94 H Respiratory Rate 20 20 16 Blood Pressure 120/83 118/84 Pulse Oximetry 97 95 96 MDM - Arrhythmia/Palpitations Lab Data Attestation: I reviewed the patient's lab results. Result diagrams: 11/14/19 10:10 11/14/19 10:10 Labs: Lab Results 11/14/19 11/14/19 11/14/19 Range/Units 10:10 10:10 10:10 WBC 7.0 (4.5-11.0) X10^3/uL RBC 4.09 (4.0-5.2) X10^6/uL Hgb 14.1 (12.0-16.0) g/dL Hct 41.7 (36-46) % MCV 102.0 H (80-100) fL MCH 34.4 H (26-34) PG MCHC 33.7 (30-36) % RDW 13.8 (11.6-14.8) % Plt Count 309 (150-400) X10^3/uL Neut % (Auto) 65.1 (50-75) % Lymph % (Auto) 26.5 (25-40) % [place] % (Auto) 6.4 (3-14) % Eos % (Auto) 0.7 L (2-4) % Baso % (Auto) 1.3 (0-2) % Neut # (Auto) 4600 (9956-6260) /uL Lymph # (Auto) 1900 (3789-7751) /uL [place] # (Auto) 400 (0-900) /uL Eos # (Auto) 100 (0-450) /uL Baso # (Auto) 100 (0-100) /uL PT 25.9 H (10.1-12.7) SECONDS INR 2.3 H (0.9-1.3) APTT 33 D (26.4-36.2) SECONDS Sodium 138 (137-145) mmol/L Potassium 4.2 (3.4-5.1) mmol/L Chloride 102 (98-107) mmol/L Carbon Dioxide 25 (22-32) mmol/L BUN 23 H (7-17) mg/dL Creatinine 1.15 H (0.52-1.04) mg/dL Estimated GFR 48.3 L (>60) mL/min BUN/Creatinine Ratio 20.0 (6-22) Glucose 141 H (70-100) mg/dL Calcium 9.6 (8.4-10.2) mg/dL Total Bilirubin 1.0 (0.2-1.3) mg/dL AST 39 H (14-36) IU/L ALT 30 (<35) IU/L Alkaline Phosphatase 56 (38-126) U/L Total Creatine Kinase 59 (30-135) U/L CK-MB (CK-2) TNP CK-MB (CK-2) Rel Index TNP Troponin I < 0.012 (0.01-0.034) ng/mL NT-Pro-B Natriuret Pep (<125) pg/mL Total Protein 7.4 (6.3-8.2) g/dL Albumin 4.1 (3.5-5.0) g/dL Globulin 3.3 (1.7-4.1) g/dL Albumin/Globulin Ratio 1.2 (1.0-2.8) Lipase 185 (23-300) U/L 11/14/19 Range/Units 10:10 WBC (4.5-11.0) X10^3/uL RBC (4.0-5.2) X10^6/uL Hgb (12.0-16.0) g/dL Hct (36-46) % MCV (80-100) fL MCH (26-34) PG MCHC (30-36) % RDW (11.6-14.8) % Plt Count (150-400) X10^3/uL Neut % (Auto) (50-75) % Lymph % (Auto) (25-40) % [place] % (Auto) (3-14) % Eos % (Auto) (2-4) % Baso % (Auto) (0-2) % Neut # (Auto) (2398-4536) /uL Lymph # (Auto) (0762-7907) /uL [place] # (Auto) (0-900) /uL Eos # (Auto) (0-450) /uL Baso # (Auto) (0-100) /uL PT (10.1-12.7) SECONDS INR (0.9-1.3) APTT (26.4-36.2) SECONDS Sodium (137-145) mmol/L Potassium (3.4-5.1) mmol/L Chloride (98-107) mmol/L Carbon Dioxide (22-32) mmol/L BUN (7-17) mg/dL Creatinine (0.52-1.04) mg/dL Estimated GFR (>60) mL/min BUN/Creatinine Ratio (6-22) Glucose (70-100) mg/dL Calcium (8.4-10.2) mg/dL Total Bilirubin (0.2-1.3) mg/dL AST (14-36) IU/L ALT (<35) IU/L Alkaline Phosphatase (38-126) U/L Total Creatine Kinase (30-135) U/L CK-MB (CK-2) CK-MB (CK-2) Rel Index Troponin I (0.01-0.034) ng/mL NT-Pro-B Natriuret Pep 4890 H (<125) pg/mL Total Protein (6.3-8.2) g/dL Albumin (3.5-5.0) g/dL Globulin (1.7-4.1) g/dL Albumin/Globulin Ratio (1.0-2.8) Lipase (23-300) U/L Imaging Data Chest x-ray: Radiologist's Impresson: PROCEDURE: XR CHEST 1V INDICATIONS: chest pain TECHNIQUE: One view of the chest was acquired. COMPARISON: [facility], , XR CHEST 1V, 10/30/2019, 13:24. FINDINGS: Surgical changes and devices: None. Lungs and pleura: Lungs are clear. No pleural effusions or pneumothorax. Mediastinum: Mediastinal contours appear normal. Heart size is moderately enlarged. Bones and chest wall: No suspicious bony lesions. Overlying soft tissues appear unremarkable. IMPRESSION: Moderate cardiomegaly is not significantly changed when compared to the prior radiographs from 10/30/2019. No acute pulmonary opacity is seen. Dictated by: Keo Juarez M.D. on 11/14/2019 at 10:24 ECG Data Attestation: I personally reviewed and interpreted this ECG as follows: Prior ECG tracings: available for review Interpretation: Atrial fibrillation rate [address] changes similar to prior EKG MDM Narrative Medical decision making narrative: Initial Lopressor IV given without significant response and lowering the heart rate. Avoided calcium channel blockers initially due to congestive heart failure. However 10 mg were given and she responded very well decreasing heart rate to 90-100. 12 30 primary enamel drier as reviewed per chart. At this time recommends loading with amiodarone 150 mg IV and discharging home on amiodarone 200 mg twice a day. Discharge Plan Departure Patient Disposition: Home Clinical Impression: Atrial fibrillation with rapid ventricular response Discharge Date/Time: 11/14/19 13:54 Instructions: DI for Atrial Fibrillation Activity Restrictions/Additional Instructions: *You have been diagnosed with atrial fibrillation with RVR *What to do: Please follow-up with cardiology. *Continue to take medications as directed Continue metoprolol as previously prescribed Start taking amiodarone 200 mg twice a day it started this evening--> SENT TO [facility] *Follow up with your primary care provider in 2-3 days *Return to ER if you should have increasing shortness of breath, heart palpitations dizziness lightheadedness chest pain or any new, worsening or concerning symptoms Prescriptions: New amiodarone 200 mg tablet 200 mg PO BID Qty: 60 RF: 0 No Action calcium carbonate [Calcium 600] 600 mg calcium (1,500 mg) Tablet 600 mg PO BID RF: 0 Flovent HFA 44 mcg/actuation Hfa Aerosol Inhaler 1 inh INHALATION PRN PRN (Reason: Wheezing) RF: 0 albuterol sulfate [Ventolin HFA] 90 mcg/actuation Hfa Aerosol Inhaler 2 puff INHALATION Q6H PRN (Reason: Wheezing) RF: 0 cholecalciferol (vitamin D3) [Vitamin D3] 1,000 unit Capsule 1,000 unit PO DAILY RF: 0 glucosamine-chondroitin [Osteo Bi-Flex] 250-200 mg Tablet 1 tab PO DAILY RF: 0 multivitamin Tablet,Chewable 4 tab PO DAILY RF: 0 Fiber Gummies 2 gram Tablet,Chewable 4 g PO DAILY RF: 0 carvedilol [Coreg] 6.25 mg Tablet 6.25 mg PO BID Qty: 60 RF: 0 digoxin 125 mcg (0.125 mg) Tablet 0.125 mg PO DAILY Qty: 30 RF: 0 Eliquis 5 mg Tablet 5 mg PO BID Qty: 60 RF: 0 furosemide 20 mg tablet 20 mg PO DAILY PRN (Reason: weight gain, edema, shortness of breath) Qty: 30 RF: 0 lisinopril 5 mg Tablet 5 mg PO BID Qty: 60 RF: 0 Referrals: Flori Mcintyre MD [Primary Care Provider] -
[2019-11-14 10:37] LABS: INR 2.3 (0.9-1.3); Prothrombin Time 25.9 SECONDS (10.1-12.7)
[2019-11-14 10:40] LABS: PTT Partial Thromboplastin Tim 33 SECONDS (26.4-36.2)
[2019-11-14 10:46] LABS: Troponin I < 0.012 ng/mL (0.01-0.034)
[2019-11-14] MEDS: METOPROLOL TARTRATE 5 MG/5 ML INJ IV (10:49)
[2019-11-14 11:14] LABS: NT-proBNP (BNP-Adult 18+) 4890 pg/mL (<125)
[2019-11-14] MEDS: dilTIAZem 5 MG/ML SDV 10 MG IV (11:19)
[2019-11-14] MEDS: AMIODARONE 150 MG/100 ML PIGGYBACK 200 MG IV (12:44)
== END 2019-11-14 13:54 | disposition home or self-care (01) ==
PROVIDERS: Emergency Provider Emergency Medicine; PCP Family Medicine
DX: I48.20 Chronic atrial fibrillation, unspecified (principal); Z79.01 Long term (current) use of anticoagulants; R06.02 Shortness of breath
CPT/HCPCS: 36415; 71045; 80053; 82550; 83690; 83880; 84484; 85025; 85610; 85730; 93005; 93010; 96365; 96375; 99284; J0282

== ENCOUNTER → 2019-12-11 13:23 | Outpatient (CLI) | payer OTHER, SELFPAY ==
[2019-10-30 15:57] VITALS: BMI 33.5
[2019-12-11 14:33] LABS: Add Manual Diff / Slide Review NO; Basophils Absolute Auto 100 /uL (0-100); Basophils Percent Auto 0.9 % (0-2); Eosinophils Absolute Auto 200 /uL (0-450); Hematocrit 42.6 % (36-46); Hemoglobin 14.4 g/dL (12.0-16.0); Lymphocytes Absolute Auto 2200 /uL (1100-4500); Lymphocytes Percent Auto 31.8 % (25-40); Mean Corpuscular HGB Conc 33.7 % (30-36); Mean Corpuscular Hemoglobin 32.5 PG (26-34); Mean Corpuscular Volume 96.3 fL (80-100); Monocytes Absolute Auto 500 /uL (0-900); Monocytes Percent Auto 7.3 % (3-14); Neutrophils Absolute Auto 3900 /uL (1500-7000); Platelet Count 243 X10^3/uL (150-400); Red Blood Cell Count 4.42 X10^6/uL (4.0-5.2); Red Cell Distribution Width 13.2 % (11.6-14.8); White Blood Cell Count 6.8 X10^3/uL (4.5-11.0)
[2019-12-11 17:01] LABS: BUN Creatinine Ratio 12.8 (6-22); Blood Urea Nitrogen 14 mg/dL (7-17); Calcium 10.3 mg/dL (8.4-10.2); Carbon Dioxide 36 mmol/L (22-32); Chloride 99 mmol/L (98-107); Estimated Glomerular Filt Rate 51.4 mL/min (>60); Glucose 98 mg/dL (70-100); HEMOLYSIS < 15 (0-50); Potassium 4.7 mmol/L (3.4-5.1); Sodium 138 mmol/L (137-145)
== END ==
PROVIDERS: PCP Family Medicine; Referring Provider Internal Medicine Cardiovascular Disease; Visit Provider Internal Medicine Cardiovascular Disease
DX: I10 Essential (primary) hypertension (principal)
CPT/HCPCS: 36415; 80048; 85025

== ENCOUNTER → 2020-01-08 12:52 | Outpatient (CLI) | payer OTHER, SELFPAY ==
[2019-10-30 15:57] VITALS: BMI 33.5
[2020-01-08 14:54] LABS: BUN Creatinine Ratio 18.9 (6-22); Blood Urea Nitrogen 20 mg/dL (7-17); Calcium 9.9 mg/dL (8.4-10.2); Carbon Dioxide 33 mmol/L (22-32); Chloride 102 mmol/L (98-107); Estimated Glomerular Filt Rate 53.1 mL/min (>60); Glucose 88 mg/dL (70-100); HEMOLYSIS < 15 (0-50); Potassium 4.3 mmol/L (3.4-5.1); Sodium 139 mmol/L (137-145)
== END ==
PROVIDERS: PCP Family Medicine; Referring Provider Internal Medicine Cardiovascular Disease; Visit Provider Internal Medicine Cardiovascular Disease
DX: I50.20 Unspecified systolic (congestive) heart failure (principal)
CPT/HCPCS: 36415; 80048

== ENCOUNTER → 2020-04-09 13:28 | Outpatient (CLI) | payer OTHER, SELFPAY ==
[2019-10-30 15:57] VITALS: BMI 33.5
--- NOTE | 2020-04-09 13:32 | DI.ECHO.S_ITS ---
[facility] +---------+ : : [address] [place] : : : : [id number] : : : : Phone: [phone]+ Echocardiogram Report + + :Name: CLAIRE TAY Study Date: 04/09/2020 Height: 66 in : :[facility] ReadingLocation: Weight: 171 lb : : Gender: Female BSA: 1.9 m2 : :: 1960 Age: 59 yrs BP: 110/79 mmHg: :Reason For Study: ATRIAL FIBRILLATION : :Ordering Physician: NADEEM, : :SUNDEEP Performed By: Lady Villanueva : :Referring: SUNDEEP SILVER : + + Interpretation Summary 1) Mildly enlarged left ventricle with moderately to severely reduced systolic function (EF 30-35%). 2) Mildly enlarged right ventricle with mildly reduced function. 3) There is mild to moderate mitral regurgitation. 4) The right ventricular systolic pressure is estimated to be at least 21 mmHg based on an estimated right atrial pressure of 3 mm Hg. 5) There is a trivial pericardial effusion noted. 6) Compared to the Echo done 10/31/2019, LVEF has improved from 10-15% to 30-35% on this study. Procedure: A two-dimensional transthoracic echocardiogram with color flow and Doppler was performed. The study quality was technically adequate. Comparison is made with the echocardiogram of 10/31/2019. The patient was in atrial fibrillation with heart rates between 76-98 bpm during the exam. Left Ventricle: There is normal left ventricular wall thickness. The estimated left ventricular end diastolic volume is 156 ml. The left ventricle is mildly dilated. The ejection fraction is estimated to be 30-35%. Diastolic function could not be accurately assessed due to atrial fibrillation. Right Ventricle: The right ventricle is mildly dilated. Right ventricular systolic function is mildly reduced. Atria: The left atrium is severely dilated. The right atrium is moderately dilated. There is no Doppler evidence for an interatrial shunt. Mitral Valve: The mitral valve leaflets appear mildly thickened, but open well. There is mild mitral annular calcification. There is a flat closure plane of the the mitral valve leaflets. There is mild to moderate mitral regurgitation. Aortic Valve: The aortic valve is trileaflet. The aortic valve opens well. There is no aortic valve stenosis. No aortic regurgitation is present. Tricuspid Valve: The tricuspid valve is normal in structure and function. There is mild tricuspid regurgitation. The right ventricular systolic pressure is estimated to be at least 21 mmHg based on an estimated right atrial pressure of 3 mm Hg. Pulmonic Valve: The pulmonic valve leaflets are thin and pliable; valve motion is normal. There is no pulmonic valvular regurgitation. Great Vessels: The aortic root is normal size. The ascending aorta is at the upper limits of normal in size. The IVC is of normal diameter and collapses greater than 50% with a sniff. This suggests a low right atrial pressure of 3 mm Hg. Pericardium/ Pleura There is a trivial pericardial effusion noted. There is no pleural effusion. MMode/2D Measurements & Calculations LVIDd: 5.9 cm LVOT diam: 2.0 cm LVIDs: 5.1 cm Ao root diam: 3.2 cm FS: 13.5 % asc Aorta Diam: 3.4 cm EPSS: 1.6 cm Ao Arch Diam (Prox Trans): 2.9 cm IVSd: 0.88 cm LVPWd: 0.77 cm LV velez. diameter/BSA (cm/m^2): 3.1 LV sys. diameter/BSA (cm/m^2): 2.7 LA A2 area: 45.6 cm2 RA long axis: 5.8 cm LA A4 area: 39.6 cm2 RA area: 23.0 cm2 LA length (vol): 7.1 cm RA vol: 77.7 ml LA vol: 214.5 ml RA : 41.5 ml/m2 LA vol index: 114.6 ml/m2 RVD1 (basal): 4.0 cm TAPSE: 1.6 cm Doppler Measurements & Calculations Ao V2 max: 135.9 cm/sec LVOT Max Oren: 61.6 cm/sec Ao V2 mean: 93.6 cm/sec LV V1 max P.5 mmHg Ao max P.4 mmHg LV V1 VTI: 11.2 cm Ao mean P.0 mmHg KRIS(I,D): 1.7 cm2 Ao V2 VTI: 21.8 cm KRIS(V,D): 1.5 cm2 sev ratio: 0.51 KRIS indexed to BSA (cm^2/m^2): 0.90 MV E max oren: 124.4 cm/sec TR max oren: 210.2 cm/sec MV A max oren: 1.8 cm/sec TR max P.7 mmHg MV E/A: 68.6 PA V2 max: 54.6 cm/sec Med Peak E' Oren: 4.8 cm/sec PA V2 mean: 33.4 cm/sec E/E' med: 26.1 PA mean P.54 mmHg Lat Peak E' Oren: 7.9 cm/sec PA pr(Accel): 29.3 mmHg E/E' lat: 15.8 E/e' average: 21.0 MV dec time: 0.18 sec MR ERO: 0.35 cm2 MR PISA: 5.1 cm2 SV(LVOT): 36.8 ml MR flow rate: 159.7 cm3/sec MR PISA radius: 0.90 cm Reading Physician:03:57 PM
== END ==
PROVIDERS: PCP Family Medicine; Referring Provider Family Medicine; Visit Provider Family Medicine
DX: I08.1 Rheumatic disorders of both mitral and tricuspid valves (principal); I48.91 Unspecified atrial fibrillation
CPT/HCPCS: 93306

== ENCOUNTER → 2020-04-17 07:32 | Outpatient (CLI) | payer OTHER, SELFPAY ==
[2019-10-30 15:57] VITALS: BMI 33.5
[2020-04-17 08:30] LABS: Hematocrit 37.7 % (36-46); Mean Corpuscular HGB Conc 34.5 % (30-36); Mean Corpuscular Hemoglobin 32.1 PG (26-34); Mean Corpuscular Volume 93.3 fL (80-100); Platelet Count 240 X10^3/uL (150-400); Red Blood Cell Count 4.05 X10^6/uL (4.0-5.2); Red Cell Distribution Width 12.9 % (11.6-14.8); White Blood Cell Count 5.4 X10^3/uL (4.5-11.0)
[2020-04-17 08:31] LABS: Add Manual Diff / Slide Review YES
[2020-04-17 08:46] LABS: Alanine Aminotransferase 13 IU/L (<35); Albumin 4.1 g/dL (3.5-5.0); Albumin Globulin Ratio 1.3 (1.0-2.8); Alkaline Phosphatase 57 U/L (38-126); Aspartate Aminotransferase 27 IU/L (14-36); BUN Creatinine Ratio 17.7 (6-22); Bilirubin Total 0.3 mg/dL (0.2-1.3); Blood Urea Nitrogen 17 mg/dL (7-17); Calcium 9.2 mg/dL (8.4-10.2); Carbon Dioxide 34 mmol/L (22-32); Chloride 103 mmol/L (98-107); Cholesterol 145 mg/dL (140-199); Estimated Glomerular Filt Rate 59.5 mL/min (>60); Globulin 3.1 g/dL (1.7-4.1); Glucose 96 mg/dL (70-100); HDL Cholesterol 40 mg/dL (40-60); HEMOLYSIS < 15 (0-50); LDL Cholesterol Calculated 90 mg/dL (<100); Potassium 4.3 mmol/L (3.4-5.1); Sodium 140 mmol/L (137-145); Total Protein 7.2 g/dL (6.3-8.2); Triglycerides 76 mg/dL (35-150)
[2020-04-17 08:47] LABS: Neutrophils Absolute Manual 2268 /uL (3000-5900); RBC Morphology Normal Morphology; Total Cells Counted 100
== END ==
PROVIDERS: PCP Family Medicine; Referring Provider Internal Medicine Cardiovascular Disease; Visit Provider Internal Medicine Cardiovascular Disease
DX: I10 Essential (primary) hypertension (principal); Z79.01 Long term (current) use of anticoagulants
CPT/HCPCS: 36415; 80053; 80061; 85007; 85025

== ENCOUNTER → 2020-05-22 08:48 | Outpatient (CLI) | payer OTHER, SELFPAY ==
[2019-10-30 15:57] VITALS: BMI 33.5
[2020-05-22 09:53] LABS: Blood Urea Nitrogen 19 mg/dL (7-17); Calcium 9.7 mg/dL (8.4-10.2); Carbon Dioxide 32 mmol/L (22-32); Chloride 100 mmol/L (98-107); Estimated Glomerular Filt Rate 56.7 mL/min (>60); Glucose 73 mg/dL (70-100); HEMOLYSIS < 15 (0-50); Sodium 139 mmol/L (137-145)
== END ==
PROVIDERS: PCP Family Medicine; Referring Provider Internal Medicine Cardiovascular Disease; Visit Provider Internal Medicine Cardiovascular Disease
DX: I50.20 Unspecified systolic (congestive) heart failure (principal)
CPT/HCPCS: 36415; 80048

== ENCOUNTER → 2020-07-08 16:24 | Outpatient (CLI) | payer OTHER, SELFPAY ==
[2019-10-30 15:57] VITALS: BMI 33.5
--- NOTE | 2020-07-08 16:27 | DI.RAD.S_ITS ---
PROCEDURE: XR SHOULDER RT MIN 2V INDICATIONS: ACUTE PAIN OF RIGHT SHOULDER TECHNIQUE: 3 views of the shoulder were acquired. COMPARISON: None. FINDINGS: Bones: No fractures or dislocations. No suspicious bony lesions. Visualized ribs appear intact. Mild periarticular osteophyte formation at the acromioclavicular and glenohumeral joints. Soft tissues: No suspicious soft tissue calcifications. IMPRESSION: Osteoarthritis. No acute fracture. No osseous lesion. If symptoms and/or clinical suspicion for pathology persist, further assessment with repeat, or advanced imaging (e.g., CT, MRI, or bone scan) may be helpful for further assessment. Dictated by: Jose Guadalupe Rodriguez M.D. on 07/08/2020 at 17:00 Approved by: Jose Guadalupe Rodriguez M.D. on 07/08/2020 at 17:00
== END ==
PROVIDERS: PCP Family Medicine; Referring Provider Family Medicine; Visit Provider Family Medicine
DX: M25.511 Pain in right shoulder (principal); M19.011 Primary osteoarthritis, right shoulder
CPT/HCPCS: 73030

== ENCOUNTER → 2020-08-20 08:10 | Outpatient (CLI) | payer OTHER, SELFPAY ==
[2019-10-30 15:57] VITALS: BMI 33.5
[2020-08-20 08:45] LABS: Add Manual Diff / Slide Review NO; Basophils Absolute Auto 100 /uL (0-100); Basophils Percent Auto 1.1 % (0-2); Eosinophils Absolute Auto 500 /uL (0-450); Eosinophils Percent Auto 8.4 % (2-4); Hematocrit 37.9 % (36-46); Lymphocytes Absolute Auto 2000 /uL (1100-4500); Mean Corpuscular HGB Conc 34.2 % (30-36); Mean Corpuscular Hemoglobin 32.2 PG (26-34); Mean Corpuscular Volume 94.1 fL (80-100); Monocytes Absolute Auto 400 /uL (0-900); Monocytes Percent Auto 8.1 % (3-14); Neutrophils Absolute Auto 2400 /uL (1500-7000); Neutrophils Percent Auto 44.4 % (50-75); Platelet Count 208 X10^3/uL (150-400); Red Blood Cell Count 4.03 X10^6/uL (4.0-5.2); Red Cell Distribution Width 13.8 % (11.6-14.8); White Blood Cell Count 5.4 X10^3/uL (4.5-11.0)
[2020-08-20 08:57] LABS: Blood Urea Nitrogen 23 mg/dL (7-17); Calcium 9.4 mg/dL (8.4-10.2); Carbon Dioxide 31 mmol/L (22-32); Chloride 103 mmol/L (98-107); Estimated Glomerular Filt Rate 56.7 mL/min (>60); Glucose 85 mg/dL (70-100); HEMOLYSIS < 15 (0-50); Potassium 4.5 mmol/L (3.4-5.1); Sodium 140 mmol/L (137-145)
== END ==
PROVIDERS: PCP Family Medicine; Referring Provider Internal Medicine Cardiovascular Disease; Visit Provider Internal Medicine Cardiovascular Disease
DX: I10 Essential (primary) hypertension (principal)
CPT/HCPCS: 36415; 80048; 85025

== ENCOUNTER → 2021-03-02 08:16 | Outpatient (CLI) | payer OTHER, SELFPAY ==
[2019-10-30 15:57] VITALS: BMI 33.5
[2021-03-02 09:44] LABS: Add Manual Diff / Slide Review NO; Basophils Absolute Auto 100 /uL (0-100); Eosinophils Absolute Auto 500 /uL (0-450); Eosinophils Percent Auto 11.1 % (2-4); Hematocrit 40.5 % (36-46); Lymphocytes Absolute Auto 1700 /uL (1100-4500); Lymphocytes Percent Auto 36.2 % (25-40); Mean Corpuscular HGB Conc 34.7 % (30-36); Mean Corpuscular Hemoglobin 33.8 PG (26-34); Mean Corpuscular Volume 97.4 fL (80-100); Monocytes Absolute Auto 400 /uL (0-900); Monocytes Percent Auto 8.3 % (3-14); Neutrophils Absolute Auto 2000 /uL (1500-7000); Neutrophils Percent Auto 42.4 % (50-75); Platelet Count 226 X10^3/uL (150-400); Red Blood Cell Count 4.16 X10^6/uL (4.0-5.2); Red Cell Distribution Width 13.5 % (11.6-14.8); White Blood Cell Count 4.8 X10^3/uL (4.5-11.0)
[2021-03-02 10:18] LABS: BUN Creatinine Ratio 13.2 (6-22); Blood Urea Nitrogen 15 mg/dL (7-17); Calcium 9.9 mg/dL (8.4-10.2); Carbon Dioxide 30 mmol/L (22-32); Chloride 105 mmol/L (98-107); Cholesterol 158 mg/dL (140-199); Estimated Glomerular Filt Rate 48.6 mL/min (>60); Glucose 95 mg/dL (80-110); HDL Cholesterol 72 mg/dL (40-60); HEMOLYSIS < 15 (0-50); LDL Cholesterol Calculated 68 mg/dL (<100); Potassium 4.6 mmol/L (3.4-5.1); Sodium 139 mmol/L (137-145); Triglycerides 89 mg/dL (35-150)
== END ==
PROVIDERS: PCP Family Medicine; Referring Provider Internal Medicine Cardiovascular Disease; Visit Provider Internal Medicine Cardiovascular Disease
DX: I10 Essential (primary) hypertension (principal); Z79.01 Long term (current) use of anticoagulants; I50.20 Unspecified systolic (congestive) heart failure
CPT/HCPCS: 36415; 80048; 80061; 85025

== ENCOUNTER → 2021-10-12 14:08 | Outpatient (CLI) | payer OTHER, SELFPAY ==
[2019-10-30 15:57] VITALS: BMI 33.5
[2021-10-12 14:46] LABS: Add Manual Diff / Slide Review NO; Basophils Absolute Auto 100 /uL (0-100); Basophils Percent Auto 1.7 % (0-2); Eosinophils Absolute Auto 900 /uL (0-450); Eosinophils Percent Auto 15.7 % (2-4); Hematocrit 36.3 % (36-46); Hemoglobin 12.6 g/dL (12.0-16.0); Lymphocytes Absolute Auto 1800 /uL (1100-4500); Lymphocytes Percent Auto 31.6 % (25-40); Mean Corpuscular HGB Conc 34.7 % (30-36); Mean Corpuscular Hemoglobin 34.3 PG (26-34); Mean Corpuscular Volume 98.9 fL (80-100); Monocytes Absolute Auto 400 /uL (0-900); Monocytes Percent Auto 6.8 % (3-14); Neutrophils Absolute Auto 2500 /uL (1500-7000); Neutrophils Percent Auto 44.2 % (50-75); Platelet Count 228 X10^3/uL (150-400); Red Blood Cell Count 3.67 X10^6/uL (4.0-5.2); White Blood Cell Count 5.7 X10^3/uL (4.5-11.0)
[2021-10-12 16:15] LABS: BUN Creatinine Ratio 16.8 (6-22); Blood Urea Nitrogen 19 mg/dL (7-17); Calcium 9.7 mg/dL (8.4-10.2); Carbon Dioxide 31 mmol/L (22-32); Chloride 99 mmol/L (98-107); Estimated Glomerular Filt Rate 55 mL/min (>60); Glucose 88 mg/dL (80-110); HEMOLYSIS < 15 (0-50); Sodium 138 mmol/L (137-145)
== END ==
PROVIDERS: PCP Family Medicine; Referring Provider Internal Medicine Cardiovascular Disease; Visit Provider Internal Medicine Cardiovascular Disease
DX: Z79.01 Long term (current) use of anticoagulants (principal); I10 Essential (primary) hypertension
CPT/HCPCS: 36415; 80048; 85025

== ENCOUNTER → 2022-04-15 09:37 | Outpatient (CLI) | payer OTHER, SELFPAY ==
[2019-10-30 15:57] VITALS: BMI 33.5
[2022-04-15 11:52] LABS: Add Manual Diff / Slide Review NO; Basophils Absolute Auto 100 /uL (0-100); Eosinophils Absolute Auto 700 /uL (0-450); Eosinophils Percent Auto 14.6 % (2-4); Hemoglobin 13.2 g/dL (12.0-16.0); Lymphocytes Absolute Auto 1700 /uL (1100-4500); Mean Corpuscular HGB Conc 34.6 % (30-36); Mean Corpuscular Hemoglobin 34.2 PG (26-34); Mean Corpuscular Volume 98.6 fL (80-100); Monocytes Absolute Auto 400 /uL (0-900); Monocytes Percent Auto 7.5 % (3-14); Neutrophils Absolute Auto 2000 /uL (1500-7000); Neutrophils Percent Auto 40.9 % (50-75); Platelet Count 211 X10^3/uL (150-400); Red Blood Cell Count 3.86 X10^6/uL (4.0-5.2); Red Cell Distribution Width 13.1 % (11.6-14.8); White Blood Cell Count 4.8 X10^3/uL (4.5-11.0)
[2022-04-15 12:19] LABS: BUN Creatinine Ratio 14.3 (6-22); Blood Urea Nitrogen 14 mg/dL (7-17); Carbon Dioxide 27 mmol/L (22-32); Chloride 104 mmol/L (98-107); Cholesterol 151 mg/dL (140-199); Estimated Glomerular Filt Rate > 60 mL/min (>60); Glucose 88 mg/dL (80-110); HDL Cholesterol 65 mg/dL (40-60); HEMOLYSIS < 15 (0-50); LDL Cholesterol Calculated 72 mg/dL (<100); Potassium 4.8 mmol/L (3.4-5.1); Sodium 142 mmol/L (137-145); Triglycerides 71 mg/dL (35-150)
== END ==
PROVIDERS: PCP Family Medicine; Referring Provider Internal Medicine Cardiovascular Disease; Visit Provider Internal Medicine Cardiovascular Disease
DX: I10 Essential (primary) hypertension (principal); Z79.01 Long term (current) use of anticoagulants
CPT/HCPCS: 36415; 80048; 80061; 85025

== ENCOUNTER → 2022-10-28 08:48 | Outpatient (CLI) | payer OTHER, SELFPAY ==
[2019-10-30 15:57] VITALS: BMI 33.5
[2022-10-28 10:23] LABS: Add Manual Diff / Slide Review NO; Basophils Absolute Auto 0 /uL (0-100); Basophils Percent Auto 1.1 % (0-2); Eosinophils Absolute Auto 500 /uL (0-450); Eosinophils Percent Auto 10.4 % (2-4); Hematocrit 38.1 % (36-46); Hemoglobin 13.1 g/dL (12.0-16.0); Lymphocytes Absolute Auto 1300 /uL (1100-4500); Lymphocytes Percent Auto 28.2 % (25-40); Mean Corpuscular HGB Conc 34.4 % (30-36); Mean Corpuscular Hemoglobin 34.1 PG (26-34); Monocytes Absolute Auto 300 /uL (0-900); Monocytes Percent Auto 6.9 % (3-14); Neutrophils Absolute Auto 2500 /uL (1500-7000); Neutrophils Percent Auto 53.4 % (50-75); Platelet Count 220 X10^3/uL (150-400); Red Blood Cell Count 3.85 X10^6/uL (4.0-5.2); Red Cell Distribution Width 13.3 % (11.6-14.8); White Blood Cell Count 4.6 X10^3/uL (4.5-11.0)
[2022-10-28 10:50] LABS: BUN Creatinine Ratio 19.2 (6-22); Blood Urea Nitrogen 20 mg/dL (7-17); Calcium 9.4 mg/dL (8.4-10.2); Carbon Dioxide 30 mmol/L (22-32); Chloride 101 mmol/L (98-107); Estimated Glomerular Filt Rate > 60 mL/min (>60); Glucose 96 mg/dL (80-110); HEMOLYSIS < 15 (0-50); Potassium 4.4 mmol/L (3.4-5.1); Sodium 139 mmol/L (137-145)
== END ==
PROVIDERS: PCP Family Medicine; Referring Provider Internal Medicine Cardiovascular Disease; Visit Provider Internal Medicine Cardiovascular Disease
DX: Z79.01 Long term (current) use of anticoagulants (principal)
CPT/HCPCS: 36415; 80048; 85025

== ENCOUNTER → 2023-06-02 09:14 | Outpatient (CLI) | payer OTHER, SELFPAY ==
[2023-06-02 09:14] VITALS: BMI 33.5
[2023-06-02 10:09] LABS: Hemoglobin 13.3 g/dL (12.0-16.0); Mean Corpuscular HGB Conc 34.2 % (30-36); Mean Corpuscular Hemoglobin 33.6 PG (26-34); Mean Corpuscular Volume 98.4 fL (80-100); Platelet Count 257 X10^3/uL (150-400); Red Blood Cell Count 3.96 X10^6/uL (4.0-5.2); Red Cell Distribution Width 13.2 % (11.6-14.8); White Blood Cell Count 5.1 X10^3/uL (4.5-11.0)
[2023-06-02 10:40] LABS: BUN Creatinine Ratio 12.9 (6-22); Blood Urea Nitrogen 13 mg/dL (7-17); Calcium 9.7 mg/dL (8.4-10.2); Carbon Dioxide 31 mmol/L (22-32); Chloride 106 mmol/L (98-107); Cholesterol 141 mg/dL (140-199); Estimated Glomerular Filt Rate > 60 mL/min (>60); Glucose 90 mg/dL (80-110); HDL Cholesterol 58 mg/dL (40-60); HEMOLYSIS < 15 (0-50); LDL Cholesterol Calculated 66 mg/dL (<100); Sodium 140 mmol/L (137-145); Triglycerides 87 mg/dL (35-150)
== END ==
PROVIDERS: PCP Family Medicine; Referring Provider Internal Medicine Cardiovascular Disease; Visit Provider Internal Medicine Cardiovascular Disease
DX: I10 Essential (primary) hypertension (principal); Z79.01 Long term (current) use of anticoagulants
CPT/HCPCS: 36415; 80048; 80061; 85027

== ENCOUNTER 2023-07-27 09:16 | Day surgery (SDC) | payer OTHER, SELFPAY ==
[2023-06-02 09:14] VITALS: BMI 33.5
--- NOTE | 2023-07-27 | PATH_ITS ---
[facility] Accession Number: [id number] No. of containers..02 Tissue . 01 Material submitted: . PART A: colon - SPLENIC FLEXURE POLYP PART B: colon - DESCENDING COLON POLYPS X2 . 01 Diagnosis: Part A: SPLENIC FLEXURE POLYP: Tubular adenoma. . Part B: DESCENDING COLON POLYPS X2: Tubular adenomas. STO 08/02/2023 1132 Local . 01 Electronically signed: . Richy Renteria MD, Pathologist NPI- [id number] . 01 Gross description: . Part A: SPLENIC FLEXURE POLYP: Received in formalin is 1 fragment(s) of neves, soft tissue measuring 0.5 x 0.3 x 0.2 cm submitted entirely in 1 cassette(s) . Part B: DESCENDING COLON POLYPS X2: Received in formalin are 3 fragment(s) of neves, soft tissue measuring 0.3 x 0.3 x 0.1 cm to 0.4 x 0.4 x 0.2 cm submitted entirely in 1 cassette(s) /FAVIAN 08/02/2023 1132 Local . 01 Pathologist provided ICD-10: D12.3, D12.4 . 01 CPT . 080861, 475239 Specimen Comment: A courtesy copy of this report has been sent to [phone] Performed at: [address] [address], [place], [place] [id number] MD Richy Renteria MD Phone: [phone]
[2023-07-27] MEDS: LACTATED RINGERS 1,000 ML 42 ML IV (10:15)
[2023-07-27 10:25] LABS: HEMOLYSIS < 15 (0-50); Potassium 4.6 mmol/L (3.4-5.1)
[2023-07-27 10:41] VITALS: BP 102/70; PULSE 90; RESP 16; TEMP 37.1; O2SAT 98
--- NOTE | 2023-07-27 11:14 | P.HP_ITS ---
History of Present Illness History of Present Illness Date Patient Seen: 07/27/23 Time Patient Seen: 11:14 Chief complaint: Screening Colonoscopy Narrative: H/o colon polyps, last scope 5 years ago. no symptoms. [facility] Medical History CHF (congestive heart failure) Rheumatic mitral regurgitation Hypertension Asthma Surgical History History of tonsillectomy History of cholecystectomy Social History household members: none Smoking Status: Former smoker alcohol intake: current Meds Home Medications and Allergies Home Medications Medication Instructions Recorded Confirmed Type albuterol sulfate 90 mcg/actuation 2 puff inhalation Q6H PRN Wheezing 12/14/18 10/30/19 History aerosol inhaler (Ventolin HFA) calcium carbonate 600 mg calcium 600 mg PO BID 12/14/18 10/30/19 History (1,500 mg) tablet (Calcium) cholecalciferol (vitamin D3) 25 1,000 unit PO DAILY 12/14/18 10/30/19 History mcg (1,000 unit) capsule (Vitamin D3) fluticasone propionate 44 1 inh inhalation PRN PRN Wheezing 12/14/18 10/30/19 History mcg/actuation HFA aerosol inhaler (Flovent HFA) glucosamine-chondroitin 250 mg-200 1 tab PO DAILY 12/14/18 10/30/19 History mg tablet (Osteo Bi-Flex) multivitamin 4 tab PO DAILY 12/14/18 10/30/19 History inulin 2 gram chewable tablet 4 g PO DAILY 10/30/19 10/30/19 History (Fiber Gummies) apixaban 5 mg tablet (Eliquis) 5 mg PO BID #60 tabs 11/02/19 Rx carvedilol 6.25 mg tablet (Coreg) 6.25 mg PO BID #60 tabs 11/02/19 Rx digoxin 125 mcg (0.125 mg) tablet 0.125 mg PO DAILY #30 tabs 11/02/19 Rx furosemide 20 mg tablet 20 mg PO DAILY PRN weight gain, 11/02/19 Rx edema, shortness of breath #30 tabs lisinopril 5 mg tablet 5 mg PO BID #60 tabs 11/02/19 Rx amiodarone 200 mg tablet 200 mg PO BID #60 tabs 11/14/19 Rx sodium,potassium,mag sulfates 17.5 See Rx Instructions PO .COMPLEX 07/14/23 Rx gram-3.13 gram-1.6 gram oral soln #354 mL (Suprep Bowel Prep Kit) Allergies Allergy/AdvReac Type Severity Reaction Status Date / Time bee venom protein (honey bee) Allergy Intermediate swelling Verified 12/14/18 07:29 at the site fluticasone [From Flonase] AdvReac Mild bloody nose Verified 12/14/18 07:29 ENVIRONMENTAL ALLERGIES Allergy Unknown Uncoded 06/07/17 11:57 Review of Systems Review of Systems ROS: Yes All systems reviewed with the patient and are negative except as otherwise documented Exam Vital Signs (past 8 hours): - 07/27/23 10:41 Temperature 98.8 F Pulse Rate 90 Respiratory Rate 16 Blood Pressure 102/70 Pulse Oximetry 98 Oxygen Delivery Method Room Air Oxygen Delivery Method Room Air Const General: cooperative, healthy appearing and comfortable Nutritional Appearance: average body habitus HENAZ Head: normocephalic and atraumatic Eyes Periorbital: periorbital findings normal Sclera: sclerae normal Neck Neck: trachea midline and No JVD Resp Effort & Inspection: normal respiratory effort and able to speak in complete sentences Cardio Rate: regular rate Rhythm: regular rhythm GI Palpation: soft and No tender Skin General: atrophy and No ecchymosis Neuro General: patient alert, patient awake and patient oriented x3 Cognition: normal cognition Psych Mental Status: mental status grossly normal Affect: normal affect Judgment: judgment good Objective Labs 07/27/23 10:08 Labs: Laboratory Results - last 24 hr 07/27/23 10:08 Potassium 4.6 Assessment & Plan Assessment & Plan narrative: History of colon polyps, here for colonoscopy with anesthesia Time Spent With Patient Time with patient: less than 30 minutes
--- NOTE | 2023-07-27 11:46 | PM.OP.COLON ---
Operative Date/Time/Diagnoses Date of procedure: 07/27/23 Time of procedure: 11:47 Pre-op diagnosis: History of colon polyps Post-op diagnosis: same Procedure & Clinicians Study performed: Colonoscopy with cold forceps polypectomy under anesthesia Same procedure as scheduled: Yes Indications: History of colon polyps Surgeon: Evon Zapata Procedure Notes Procedure in detail: Preop diagnosis: History of colon polyps Postop diagnosis: Same Operative procedure: Colonoscopy with cold forceps polypectomy using anesthesia Findings: 3 potential adenomatous polyps sessile, 3 mm in size. At the splenic flexure as well as the 2 in the descending colon. Severe large and moderate size diverticulosis predominantly the descending colon but can be found on the right side as well. Procedure: Patient placed in a lateral position. Rectal exam performed showing normal tone no masses. Colonoscope inserted into the rectum and advanced to ileocecal valve with minimal difficulty. Insufflation extraction scope and the above findings. Retroflex was included in the rectum. Impression: 3 polypectomies performed with expectation of at least 2 being adenomatous in nature. Severe diverticulosis of the descending colon with large diverticuli. Moderate to large diverticuli can be found throughout the colon as well. Plan: Repeat colonoscopy in 5 years unless otherwise warranted for change in clinical condition Findings: divertiulosis and polyp(s) (Three sessile polyps proximally 3 mm in size 1 at the splenic flexure, 2 in the descending colon) Specimen(s): other (Polyps) Complications: none Post-procedure Recommendations: Colonoscopy in 5 years Follow up: as needed Disposition: PACU
[2023-07-27 11:50] VITALS: BP 89/59; PULSE 102; RESP 20; TEMP 37; O2SAT 97
[2023-07-27 11:56] VITALS: BP 92/64; PULSE 101; RESP 21; TEMP 36.9; O2SAT 96
[2023-07-27 12:00] VITALS: BP 96/66; PULSE 112; RESP 12; TEMP 36.9; O2SAT 99
[2023-07-27 12:10] VITALS: BP 97/66; PULSE 98; RESP 20; O2SAT 98
== END 2023-07-27 12:20 | disposition home or self-care (01) ==
PROVIDERS: Anesthesiology; PCP Family Medicine; Referring Provider Surgery; Visit Provider Surgery
PROC: 0DJD8ZZ Inspection of Lower Intestinal Tract, Via Natural or Artificial Opening Endoscopic (ICD-10-PCS; CPT 45378; principal; 2023-07-27 10:15)
DX: Z12.11 Encounter for screening for malignant neoplasm of colon (principal); Z86.010 Personal history of colon polyps; K57.30 Diverticulosis of large intestine without perforation or abscess without bleeding; D12.4 Benign neoplasm of descending colon
CPT/HCPCS: 45380; 84132; J2704

== ENCOUNTER → 2023-11-24 13:32 | Outpatient (CLI) | payer OTHER, SELFPAY ==
[2023-06-02 09:14] VITALS: BMI 33.5
[2023-11-24 15:02] LABS: Hematocrit 40.2 % (36-46); Hemoglobin 13.7 g/dL (12.0-16.0); Mean Corpuscular HGB Conc 34.2 % (30-36); Mean Corpuscular Hemoglobin 34.3 PG (26-34); Mean Corpuscular Volume 100.4 fL (80-100); Platelet Count 258 X10^3/uL (150-400); Red Cell Distribution Width 13.5 % (11.6-14.8); White Blood Cell Count 6.1 X10^3/uL (4.5-11.0)
[2023-11-24 15:18] LABS: BUN Creatinine Ratio 20.2 (6-22); Blood Urea Nitrogen 22 mg/dL (7-17); Calcium 9.5 mg/dL (8.4-10.2); Carbon Dioxide 29 mmol/L (22-32); Chloride 99 mmol/L (98-107); Estimated Glomerular Filt Rate 57 mL/min (>60); Glucose 89 mg/dL (80-110); HEMOLYSIS < 15 (0-50); Potassium 4.3 mmol/L (3.4-5.1); Sodium 135 mmol/L (137-145)
[2023-11-24 15:26] LABS: NT-proBNP (BNP-Adult 18+) 1930 pg/mL (<125)
== END ==
PROVIDERS: PCP Family Medicine; Referring Provider Internal Medicine Cardiovascular Disease; Visit Provider Internal Medicine Cardiovascular Disease
DX: I10 Essential (primary) hypertension (principal); Z79.01 Long term (current) use of anticoagulants
CPT/HCPCS: 36415; 80048; 83880; 85027

== ENCOUNTER → 2024-01-05 10:31 | Outpatient (CLI) | payer OTHER, SELFPAY ==
[2023-06-02 09:14] VITALS: BMI 33.5
[2024-01-05 12:28] LABS: BUN Creatinine Ratio 15.7 (6-22); Blood Urea Nitrogen 17 mg/dL (7-17); Calcium 9.4 mg/dL (8.4-10.2); Carbon Dioxide 28 mmol/L (22-32); Chloride 103 mmol/L (98-107); Estimated Glomerular Filt Rate 58 mL/min (>60); Glucose 87 mg/dL (80-110); HEMOLYSIS < 15 (0-50); Potassium 4.8 mmol/L (3.4-5.1); Sodium 138 mmol/L (137-145)
[2024-01-05 12:33] LABS: NT-proBNP (BNP-Adult 18+) 3010 pg/mL (<125)
== END ==
PROVIDERS: PCP Family Medicine; Referring Provider Internal Medicine Cardiovascular Disease; Visit Provider Internal Medicine Cardiovascular Disease
DX: I50.20 Unspecified systolic (congestive) heart failure (principal)
CPT/HCPCS: 36415; 80048; 83880

== ENCOUNTER → 2024-05-17 10:22 | Outpatient (CLI) | payer OTHER, SELFPAY ==
[2023-06-02 09:14] VITALS: BMI 33.5
[2024-05-17 11:07] LABS: Hematocrit 42.1 % (36-46); Hemoglobin 14.3 g/dL (12.0-16.0); Mean Corpuscular HGB Conc 33.9 % (30-36); Mean Corpuscular Hemoglobin 33.4 PG (26-34); Mean Corpuscular Volume 98.4 fL (80-100); Platelet Count 338 X10^3/uL (150-400); Red Blood Cell Count 4.28 X10^6/uL (4.0-5.2); Red Cell Distribution Width 13.6 % (11.6-14.8); White Blood Cell Count 4.9 X10^3/uL (4.5-11.0)
[2024-05-17 11:53] LABS: BUN Creatinine Ratio 20.4 (6-22); Blood Urea Nitrogen 20 mg/dL (7-17); Calcium 10.2 mg/dL (8.4-10.2); Carbon Dioxide 27 mmol/L (22-32); Chloride 100 mmol/L (98-107); Estimated Glomerular Filt Rate > 60 mL/min (>60); Glucose 96 mg/dL (80-110); HEMOLYSIS < 15 (0-50); Potassium 4.5 mmol/L (3.4-5.1); Sodium 138 mmol/L (137-145)
== END ==
PROVIDERS: PCP Family Medicine; Referring Provider Family Medicine; Visit Provider Internal Medicine Cardiovascular Disease
DX: I50.20 Unspecified systolic (congestive) heart failure (principal); Z79.01 Long term (current) use of anticoagulants
CPT/HCPCS: 36415; 80048; 85027

== ENCOUNTER → 2024-11-08 12:36 | Outpatient (CLI) | payer OTHER, SELFPAY ==
[2023-06-02 09:14] VITALS: BMI 33.5
[2024-11-08 12:59] LABS: Hematocrit 38.7 % (36-46); Hemoglobin 13.3 g/dL (12.0-16.0); Mean Corpuscular HGB Conc 34.5 % (30-36); Mean Corpuscular Hemoglobin 34.1 PG (26-34); Mean Corpuscular Volume 99.0 fL (80-100); Platelet Count 221 X10^3/uL (150-400)
[2024-11-08 15:25] LABS: Blood Urea Nitrogen 23 mg/dL (7-17); Calcium 9.5 mg/dL (8.4-10.2); Carbon Dioxide 26 mmol/L (22-32); Chloride 102 mmol/L (98-107); Estimated Glomerular Filt Rate 53 mL/min (>60); Glucose 98 mg/dL (70-99); HEMOLYSIS < 15 (0-50); Potassium 4.7 mmol/L (3.4-5.1); Sodium 137 mmol/L (137-145)
[2024-11-08 15:34] LABS: NT-proBNP (BNP-Adult 18+) 2050 pg/mL (<125)
== END ==
PROVIDERS: PCP Family Medicine; Referring Provider Internal Medicine Cardiovascular Disease; Visit Provider Internal Medicine Cardiovascular Disease
DX: I10 Essential (primary) hypertension (principal)
CPT/HCPCS: 36415; 80048; 83880; 85027